=== PATIENT | male | born 1970 | race Caucasian/White ===

== ENCOUNTER 2017-11-22 13:35 | Emergency (ER) | payer OTHER, SELFPAY ==
[2017-11-22 13:40] VITALS: BP 130/83; PULSE 79; RESP 16; TEMP 36.7; O2SAT 98
--- NOTE | 2017-11-22 13:54 | ED.BACK ---
HPI - Back Pain/Injury <Shirley Camacho PA-C - Last Filed: 11/22/17 21:18> General Chief Complaint: Back Pain/Injury Stated Complaint: 'THREW MY BACK OUT SO SEVERE' Time Seen by Provider: 11/22/17 13:54 Source: patient Mode of arrival: ambulatory Limitations: no limitations History of Present Illness HPI Narrative: This 47-year-old male states he was pressure washing when he twisted and felt pain right away in his left low back. Pain is worse with pressure in certain areas or twisting. He denies any other injury. States he did hurt his back several months ago but symptoms had resolved. He denies any pain, weakness, or paresthesia in the extremities. He denies any bowel or bladder dysfunction. No fever other injury, or other new complaints today. Related Data Previous Rx's Medication Instructions Recorded ibuprofen 800 mg PO TID PRN #20 tab 09/22/17 lamotrigine 200 mg tablet 600 mg PO BID #540 tab 10/03/17 levetiracetam 500 mg tablet 1,000 mg PO BID #360 tab 10/03/17 quetiapine 50 mg tablet 100 mg PO HS #180 tab 10/03/17 diazepam [Valium] 5 mg PO Q8H PRN #7 tab 11/22/17 hydrocodone-acetaminophen [[place]] 1 tab PO Q4-6H PRN #6 tab 11/22/17 Allergies Allergy/AdvReac Type Severity Reaction Status Date / Time oxycodone [OXYCODONE] Allergy Mild Verified 11/22/17 13:40 Review of Systems <Shirley Camacho PA-C - Last Filed: 11/22/17 21:18> Review of Systems All systems reviewed & are unremarkable except as noted in HPI and below Exam <Shirley Camacho PA-C - Last Filed: 11/22/17 21:18> Narrative Exam Narrative: GENERAL APPEARANCE: Patient sitting comfortably, in no distress. PULMONARY: Lungs clear to auscultation bilaterally CV: Regular rhythm regular without murmur, normal S1 and S2, no S3 or S4 MUSCULOSKELETAL: No point tenderness over the lumbar spine. Moderate tenderness over the left mid to inferior lumbar musculature at the mid scapular line. He has reduced lateral bend and rotation, R>L, secondary to tendernesss. Normal trunk flexion and extension. Normal sit:stand and gait. Lower extremity strength 5/5 bilateral hip flexors, knee extensors, foot plantar flexion. Negative modified straight leg raise NEUROLOGIC: Bilateral patellar and Achilles DTRs 2+ Initial Vital Signs Initial Vital Signs: Vital Signs Temperature 98.1 F 11/22/17 13:40 Pulse Rate 79 11/22/17 13:40 Respiratory Rate 16 11/22/17 13:40 Blood Pressure 130/83 H 11/22/17 13:40 Pulse Oximetry 98 11/22/17 13:40 <Bubba Escamilla MD - Last Filed: 11/23/17 18:16> Initial Vital Signs Initial Vital Signs: Vital Signs Temperature 98.1 F 11/22/17 13:40 Pulse Rate 79 11/22/17 13:40 Respiratory Rate 16 11/22/17 13:40 Blood Pressure 130/83 H 11/22/17 13:40 Pulse Oximetry 98 11/22/17 13:40 Course <Shirley Camacho PA-C - Last Filed: 11/22/17 21:18> Vital Signs - 8 hr 11/22/17 13:40 11/22/17 14:31 Temperature 98.1 F Pulse Rate 79 72 Respiratory Rate 16 16 Blood Pressure 130/83 H Blood Pressure [Left Arm] 119/84 H Pulse Oximetry 98 98 <Bubba Escamilla MD - Last Filed: 11/23/17 18:16> Vital Signs - 8 hr 11/22/17 13:40 11/22/17 14:31 Temperature 98.1 F Pulse Rate 79 72 Respiratory Rate 16 16 Blood Pressure 130/83 H Blood Pressure [Left Arm] 119/84 H Pulse Oximetry 98 98 Discharge Plan Departure Patient Disposition: Home, Self-Care Clinical Impression: Acute myofascial strain of lumbar region Discharge Date/Time: 11/22/17 14:41 Interventions: ED Discharge Assessment Last Done: 11/22/17 14:40 Instructions: DI for Back Strain or Sprain Activity Restrictions/Additional Instructions: Continue ice today as helpful. I suggest getting some [id number] lidocaine 4% patches from the pharmacy and put them on the sore areas on your back today and as needed. You can take another dose of 800 mg ibuprofen this evening and continue that every 8 hr as needed. I have also prescribed a few hydrocodone/acetaminophen for pain and Valium (diazepam) to help with the tight muscles and spasms. You may need these for today until the acute pain starts to improve. Please return if you have new or acutely worsening symptoms, otherwise you should follow up with your PCP if this is not improving over the weekend as you may need further testing or treatment. Remember not to drive with the pain medicine or muscle relaxant as they will likely make you sleepy. Prescriptions: New hydrocodone-acetaminophen [[place]] 5-325 mg tablet 1 tab PO Q4-6H PRN (Reason: back pain) Qty: 6 RF: 0 diazepam [Valium] 5 mg tablet 5 mg PO Q8H PRN (Reason: back pain/spasm) Qty: 7 RF: 0 No Action lamotrigine [Lamictal] 200 mg tablet 600 mg PO BID Qty: 540 RF: 3 levetiracetam [Keppra] 500 mg tablet 1,000 mg PO BID Qty: 360 RF: 3 quetiapine 50 mg tablet 100 mg PO HS Qty: 180 RF: 3 ibuprofen 800 mg tablet 800 mg PO TID PRN (Reason: pain) Qty: 20 RF: 0 Referrals: Yosvany Kraft MD [Primary Care Provider] - <Bubba Escamilla MD - Last Filed: 11/23/17 18:16> [facility] ED Attending Cosfarshadature Attestation: I was fairly well in the emergency department to answer questions and assist if needed. I agree with the document content and management plan.
[2017-11-22 14:31] VITALS: BP 119/84; PULSE 72; RESP 16; O2SAT 98
== END 2017-11-22 14:41 | disposition home or self-care (01) ==
PROVIDERS: Emergency Provider Internal Medicine; Family Provider Internal Medicine; PCP Internal Medicine
DX: S39.012A Strain of muscle, fascia and tendon of lower back, initial encounter (principal)
CPT/HCPCS: 99282

== ENCOUNTER 2017-12-07 12:14 | Emergency (ER) | payer OTHER, SELFPAY ==
[2017-12-07 12:20] VITALS: BP 143/90; PULSE 72; RESP 20; TEMP 36.8; O2SAT 100
--- NOTE | 2017-12-07 12:35 | ED.LOWEXIN ---
HPI - Extremity Injury (Lower) <ROMEL Hendrickson - Last Filed: 12/07/17 22:39> General Chief Complaint: Extremity Injury, Lower Stated Complaint: LACERATION TO RIGHT SHINE Time Seen by Provider: 12/07/17 12:35 History of Present Illness HPI Narrative: 47-year-old male here for complaint of laceration to his right cervantes. He states that he was mowing the lawn when he accidentally by brushed up against the side of the riding lawnmower and sharp edge of metal caught him in the right anterior cervantes. Patient was able to ambulate into the emergency room. He denies any other injuries or concerns. He states he does not remember his last tetanus shot. Incident happened just prior to arrival. Related Data Previous Rx's Medication Instructions Recorded ibuprofen 800 mg PO TID PRN #20 tab 09/22/17 lamotrigine 200 mg tablet 600 mg PO BID #540 tab 10/03/17 levetiracetam 500 mg tablet 1,000 mg PO BID #360 tab 10/03/17 quetiapine 50 mg tablet 100 mg PO HS #180 tab 10/03/17 diazepam [Valium] 5 mg PO Q8H PRN #7 tab 11/22/17 hydrocodone-acetaminophen [[place]] 1 tab PO Q4-6H PRN #6 tab 11/22/17 Allergies Allergy/AdvReac Type Severity Reaction Status Date / Time oxycodone [OXYCODONE] Allergy Mild Verified 11/22/17 13:40 Review of Systems <ROMEL Hendrickson - Last Filed: 12/07/17 22:39> Constitutional Denies chills, Denies fever(s), Denies lethargy and Denies weakness Eyes Denies change in vision, Denies eye discharge, Denies irritation and Denies loss of vision ENT Ears, Nose, Mouth, and Throat: Denies change in voice, Denies neck pain and Denies sore throat Cardiovascular Denies chest pain, Denies irregular heart rhythm, Denies lightheadedness, Denies palpitations, Denies dyspnea, Denies dyspnea on exertion and Denies orthopnea Respiratory Denies cough, Denies dyspnea, Denies dyspnea on exertion and Denies wheezing Gastrointestinal Gastrointestinal: Denies abdominal pain, Denies change in bowel habits, Denies diarrhea, Denies nausea and Denies vomiting Genitourinary Denies hematuria, Denies flank pain, Denies urinary incontinence and Denies urinary urgency Musculoskeletal Denies neck pain Comments: Laceration right cervantes Integumentary/Breasts Denies pruritus, Denies erythema, Denies rash and Denies wounds Neurologic Denies confusion, Denies loss of vision and Denies weakness Psychiatric Denies anxiety, Denies confusion, Denies depression, Denies homicidal ideation and Denies suicidal ideation Endocrine Denies palpitations Hematologic/Lymphatic Denies easy bruising Allergic/Immunologic Denies wheezing Exam <ROMEL Hendrickson - Last Filed: 12/07/17 22:39> Initial Vital Signs Initial Vital Signs: Vital Signs Temperature 98.2 F 12/07/17 12:20 Pulse Rate 72 12/07/17 12:20 Respiratory Rate 20 12/07/17 12:20 Blood Pressure 143/90 H 12/07/17 12:20 Pulse Oximetry 100 12/07/17 12:20 Const General: cooperative and well developed Nutritional Appearance: well nourished Orientation: alert, awake, oriented x3 and not confused HENFL Mouth: moist mucous membranes Eyes Conjunctivae: conjunctivae normal Sclera: sclerae normal Pupils: PERRL EOM: EOM intact bilaterally Resp Effort & Inspection: normal respiratory effort, able to speak in complete sentences, no respiratory distress and no use of accessory muscles Auscultation: clear to auscultation bilaterally, no rales, no rhonchi and no wheezes Cardio Rate: regular rate Rhythm: regular rhythm Heart Sounds: no click, no gallops, no murmurs and no rubs Pulses: normal peripheral pulses Skin General: no rashes or lesions noted, No jaundice and No petechiae Neuro General: alert, oriented x3, gait normal and no focal motor deficits Speech: speech normal Extrem Other: 3 cm laceration to and anterior right cervantes. Distal sensation is intact. Distal pulses are intact. Full range of motion. <Yeimy Holguin DO - Last Filed: 12/11/17 05:55> Initial Vital Signs Initial Vital Signs: Vital Signs Temperature 98.2 F 12/07/17 12:20 Pulse Rate 72 12/07/17 12:20 Respiratory Rate 20 12/07/17 12:20 Blood Pressure 143/90 H 12/07/17 12:20 Pulse Oximetry 100 12/07/17 12:20 Procedures <ROMEL Hendrickson - Last Filed: 12/07/17 22:39> Laceration Repair Laceration 1: Site: lower extremity (3 cm laceration to anterior right cervantes) Side (If applicable): right Size (cm): 3 Description: linear Depth: simple, single layer Local Anesthetic: lidocaine 1% Amount of anesthesia used (mL): 4 Pre-repair: wound explored and irrigated extensively Size (cm): 4-0 Number of sutures: 7 Technique: simple, interrupted Course <ROMEL Hendrickson - Last Filed: 12/07/17 22:39> Orders Ordered: Discontinued Medications Diphtheria/Tetanus/Acell Pertussis (Adacel) 0.5 ml IM .ONCE ONE Stop: 12/07/17 13:08 Last Admin: 12/07/17 13:28 Dose: 0.5 ml Vital Signs - 8 hr 12/07/17 12:20 Temperature 98.2 F Pulse Rate 72 Respiratory Rate 20 Blood Pressure 143/90 H Pulse Oximetry 100 <Yeimy Holguin DO - Last Filed: 12/11/17 05:55> Orders Ordered: Discontinued Medications Diphtheria/Tetanus/Acell Pertussis (Adacel) 0.5 ml IM .ONCE ONE Stop: 12/07/17 13:08 Last Admin: 12/07/17 13:28 Dose: 0.5 ml Vital Signs - 8 hr 12/07/17 12:20 Temperature 98.2 F Pulse Rate 72 Respiratory Rate 20 Blood Pressure 143/90 H Pulse Oximetry 100 MDM - Extremity Injury (Lower) <ROMEL Hendrickson - Last Filed: 12/07/17 22:39> MDM Narrative Medical decision making narrative: Laceration was closed with 7 4-0 nylon simple interrupted sutures with no complications. Tetanus was updated in the emergency room. Wound dressed with bacitracin and dressing. Sutures to be removed in 10 days. [id number] Tylenol Motrin as needed for any discomfort. Follow up with primary care provider. Keep wound area clean and dry for 24 hr. After 24 hr may shower briefly dry wound afterwards stress wound with bacitracin and dressing. Dress wound daily with bacitracin and a dressing. For any worsening symptoms or signs of infection return to the emergency room. Discharge Plan Departure Patient Disposition: Home, Self-Care Clinical Impression: Laceration of lower leg, right Discharge Date/Time: 12/07/17 13:52 Interventions: ED Discharge Assessment Last Done: 12/07/17 13:52 Instructions: DI for Laceration Repair Activity Restrictions/Additional Instructions: Laceration to right cervantes was closed with 7 sutures. Tetanus was updated in the emergency room. Wound dressed with bacitracin and dressing. Sutures to be removed in 10 days. [id number] Tylenol Motrin as needed for any discomfort. Follow up with primary care provider. Keep wound area clean and dry for 24 hr. After 24 hr may shower briefly dry wound afterwards stress wound with bacitracin and dressing. Dress wound daily with bacitracin and a dressing. For any worsening symptoms or signs of infection return to the emergency room. Prescriptions: No Action lamotrigine [Lamictal] 200 mg tablet 600 mg PO BID Qty: 540 RF: 3 levetiracetam [Keppra] 500 mg tablet 1,000 mg PO BID Qty: 360 RF: 3 quetiapine 50 mg tablet 100 mg PO HS Qty: 180 RF: 3 ibuprofen 800 mg tablet 800 mg PO TID PRN (Reason: pain) Qty: 20 RF: 0 hydrocodone-acetaminophen [[place]] 5-325 mg tablet 1 tab PO Q4-6H PRN (Reason: back pain) Qty: 6 RF: 0 diazepam [Valium] 5 mg tablet 5 mg PO Q8H PRN (Reason: back pain/spasm) Qty: 7 RF: 0 Referrals: Yosvany Kraft MD [Primary Care Provider] - <Yeimy Holguin DO - Last Filed: 12/11/17 05:55> [facility] [place] Attestation: I was immediately available in the department for consultation. Documentation has been reviewed. I agree with assessment and plan.
[2017-12-07 13:27] VITALS: BP 123/84; PULSE 67; RESP 18; O2SAT 100
[2017-12-07] MEDS: TET,DIPH,PERTUSS(ACELL),VAC/PF 0.5 ML SYRINGE IM (13:28)
== END 2017-12-07 13:52 | disposition home or self-care (01) ==
PROVIDERS: Emergency Provider Nurse Practitioner Family; Family Provider Internal Medicine; PCP Internal Medicine
DX: S81.811A Laceration without foreign body, right lower leg, initial encounter (principal); W26.8XXA Contact with other sharp object(s), not elsewhere classified, initial encounter
CPT/HCPCS: 12002; 90471; 99282; 99283; 90715

== ENCOUNTER 2018-02-15 02:17 | Emergency (ER) | payer OTHER, SELFPAY ==
--- NOTE | 2018-02-15 02:21 | ED_ITS ---
HPI - Extremity Injury (Upper) General Chief Complaint: Extremity Injury, Upper Stated Complaint: left hand injury, swollen pain Time Seen by Provider: 02/15/18 02:20 Source: patient Mode of arrival: ambulatory Limitations: no limitations History of Present Illness HPI narrative: 47-year-old male with history of smoking and seizure disorder presents with a chief complaint of left hand pain and swelling after falling a few feet out of a tree earlier today. He fell from about waist high and to his left hand and now has pain and swelling, much worse with motion. He denies any wrist, shoulder or elbow pain. He did not hurt his head, neck or back. He denies any numbness, tingling or weakness. His pain is worse with motion and improves with rest MD complaint: injury to: left Onset (ago): hour(s) Other Extremity Injury: Left: hand Handedness: right Place: outdoors Severity: moderate Relieving factors: immobilization Exacerbating factors: movement of extremity Context: fall Associated symptoms: denies other symptoms Treatments prior to arrival: NSAIDS Related Data Previous Rx's Medication Instructions Recorded ibuprofen 800 mg PO TID PRN #20 tab 09/22/17 lamotrigine 200 mg tablet 600 mg PO BID #540 tab 10/03/17 levetiracetam 500 mg tablet 1,000 mg PO BID #360 tab 10/03/17 quetiapine 50 mg tablet 100 mg PO HS #180 tab 10/03/17 hydrocodone-acetaminophen 1 tab PO Q4-6H PRN #14 tab 02/15/18 Allergies Allergy/AdvReac Type Severity Reaction Status Date / Time oxycodone [OXYCODONE] Allergy Mild Verified 01/09/18 13:32 Review of Systems Review of Systems All systems reviewed & are unremarkable except as noted in HPI and below Constitutional Denies chills, Denies fever(s), Denies lethargy and Denies weakness Eyes Denies change in vision, Denies eye discharge, Denies irritation and Denies loss of vision ENT Ears, Nose, Mouth, and Throat: Denies change in voice, Denies neck pain and Denies sore throat Cardiovascular Denies chest pain, Denies irregular heart rhythm, Denies lightheadedness, Denies palpitations, Denies dyspnea, Denies dyspnea on exertion and Denies orthopnea Respiratory Denies cough, Denies dyspnea, Denies dyspnea on exertion and Denies wheezing Gastrointestinal Gastrointestinal: Denies abdominal pain, Denies change in bowel habits, Denies diarrhea, Denies nausea and Denies vomiting Genitourinary Denies hematuria, Denies flank pain, Denies urinary incontinence and Denies urinary urgency Musculoskeletal Reports joint swelling, Reports limited range of motion and Denies neck pain Integumentary/Breasts Denies pruritus, Denies erythema, Denies rash and Denies wounds Neurologic Denies confusion, Denies loss of vision and Denies weakness Psychiatric Denies anxiety, Denies confusion, Denies depression, Denies homicidal ideation and Denies suicidal ideation Endocrine Denies palpitations Hematologic/Lymphatic Denies easy bruising Allergic/Immunologic Denies wheezing [facility] Social History marital status: unmarried,single number of children: 0 household members: family lives independently: Yes caregiver/support person: No housing: house pets and animals: Yes education level: high school 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 Extraoccular muscles are intact bilaterally. There is no subconjunctival hemorrhage or exudate. CHEST: Lungs are clear to auscultation bilaterally and free of wheezes, rales, or rhonchi. Heart rate is regular rhythm, there are no murmurs, clicks, rubs, or gallops. There is no chest wall tenderness. ABD: Abdomen is soft and nontender. There is no guarding or rebound. Bowel sounds are normal in all 4 quadrants. There is no mass or organomegaly. EXT: Decreased range of motion secondary to pain of left hand with notable swelling on the dorsal lateral aspect, overlying 5th metacarpal. This is closed , isolated and neurovascularly intact. Cap refills less than 2 sec SKIN: Warm, pink, and dry. No erythema or rash Initial Vital Signs Initial Vital Signs: Vital Signs Temperature 97.9 F 02/15/18 02:27 Pulse Rate 79 02/15/18 02:27 Respiratory Rate 18 02/15/18 02:27 Blood Pressure 149/97 H 02/15/18 02:27 Pulse Oximetry 97 02/15/18 02:27 Procedures Orthopedic Splinting/Casting Injury #1: Side: left Upper Extremity Injury Location: hand Upper Extremity Immobilizer: ulnar gutter Course Orders Ordered: ED Orders 02/15/18 02:23 XR hand LT min 3V Stat Discontinued Medications Hydrocodone Bitart/Acetaminophen (Vicodin Prepack) 1 bottle MISC SEEINSTR ONE Stop: 02/15/18 02:36 Vital Signs - 8 hr 02/15/18 02:27 Temperature 97.9 F Pulse Rate 79 Respiratory Rate 18 Blood Pressure 149/97 H Pulse Oximetry 97 Discharge Plan Departure Patient Disposition: Home Clinical Impression: Fracture of fifth metacarpal bone Instructions: DI for a Hand Fracture Activity Restrictions/Additional Instructions: *You have been diagnosed with [acute mildly displaced left 5th metacarpal fracture ] *What to do: *Take medications as directed: Wear splint until follow-up *Follow up with orthopedics, call for an appointment. Let them know you were seen in the Emergency Department and that we ask that you be seen in follow up *Return to ER if you should have any new, worsening or concerning symptoms Prescriptions: New hydrocodone-acetaminophen 5-325 mg tablet 1 tab PO Q4-6H PRN (Reason: pain) Qty: 14 RF: 0 No Action lamotrigine [Lamictal] 200 mg tablet 600 mg PO BID Qty: 540 RF: 3 levetiracetam [Keppra] 500 mg tablet 1,000 mg PO BID Qty: 360 RF: 3 quetiapine 50 mg tablet 100 mg PO HS Qty: 180 RF: 3 ibuprofen 800 mg tablet 800 mg PO TID PRN (Reason: pain) Qty: 20 RF: 0 Referrals: Yosvany Kraft MD [Primary Care Provider] - Mark Zimmerman MD [Physician] -
--- NOTE | 2018-02-15 02:23 | DI.RAD.S_ITS ---
PROCEDURE: XR HAND LT MIN 3V INDICATIONS: pain swelling after injury (fall from tree) TECHNIQUE: 3 views of the hand(s) acquired. COMPARISON: None. FINDINGS: Bones: There is a fifth metacarpal neck fracture/deformity of uncertain chronicity. Small corticated ossicle adjacent to the surgical metacarpal head is likely sequelae of old injury. Carpal bones are normally aligned. No suspicious bony lesions. Soft tissues: No suspicious soft tissue calcifications. IMPRESSION: 1. Fifth metacarpal neck fracture of uncertain chronicity. 2. Small corticated ossicle adjacent to the third metacarpal head, likely sequelae of old injury. Dictated by: Jhon Alcantar M.D. on 02/15/2018 at 8:30 Approved by: Jhon Alcantar M.D. on 02/15/2018 at 8:33
[2018-02-15 02:27] VITALS: BP 149/97; PULSE 79; RESP 18; TEMP 36.6; O2SAT 97
[2018-02-15] MEDS: HYDROCODONE/ACET 5/325 PREPACK 1 BOTTLE MISC (02:42)
== END 2018-02-15 03:09 | disposition home or self-care (01) ==
PROVIDERS: Emergency Provider Emergency Medicine; Family Provider Internal Medicine; PCP Internal Medicine
DX: S62.307A Unspecified fracture of fifth metacarpal bone, left hand, initial encounter for closed fracture (principal); W14.XXXA Fall from tree, initial encounter
CPT/HCPCS: 29125; 73130; 99282; 99283

== ENCOUNTER 2018-05-22 02:54 | Emergency (ER) | payer OTHER, SELFPAY ==
--- NOTE | 2018-05-22 03:01 | DI.RAD.S_ITS ---
PROCEDURE: XR WRIST RT MIN 3V INDICATIONS: fall TECHNIQUE: 4 views of the wrist were acquired. COMPARISON: None. FINDINGS: Bones: Comminuted intra-articular distal radial metaphyseal fracture. There is also fracture of the ulnar styloid. Soft tissues: No suspicious soft tissue calcifications. IMPRESSION: Distal radial and ulnar fractures as above Dictated by: Daniele Kuamr M.D. on 05/22/2018 at 9:09 Approved by: Daniele Kumar M.D. on 05/22/2018 at 9:10
--- NOTE | 2018-05-22 03:02 | DI.RAD.S_ITS ---
PROCEDURE: XR FOREARM RT 2V INDICATIONS: fall TECHNIQUE: 2 views of the forearm were acquired. COMPARISON: None. FINDINGS: Bones: Severely comminuted distal radial metaphyseal fracture with intra-articular extension and gross articular surface incongruity. Mildly displaced ulnar styloid fracture also noted. First CMC and triscaphe joint degeneration Soft tissues: No suspicious soft tissue calcifications or masses. IMPRESSION: Severely comminuted distal radial metaphyseal fracture with associated articular surface incongruity Mildly displaced ulnar styloid fracture. Dictated by: Daniele Kumar M.D. on 05/22/2018 at 10:16 Approved by: Daniele Kumar M.D. on 05/22/2018 at 10:17
[2018-05-22 03:03] VITALS: BP 126/76; PULSE 74; RESP 16; TEMP 36.6; O2SAT 98
[2018-05-22 03:07] VITALS: PULSE 74
[2018-05-22] MEDS: HYDROCODONE/ACET 5/325 TABLET 1 TAB PO (03:33)
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
--- NOTE | 2018-05-22 04:04 | PC.NURSE ---
Provider approved splint.
[2018-05-22 04:05] VITALS: BP 133/80; PULSE 85; RESP 16; O2SAT 96
== END 2018-05-22 04:07 | disposition home or self-care (01) ==
PROVIDERS: Emergency Provider Emergency Medicine; Family Provider Internal Medicine; PCP Internal Medicine
DX: M25.531 Pain in right wrist (principal); S62.101A Fracture of unspecified carpal bone, right wrist, initial encounter for closed fracture; Y09 Assault by unspecified means
CPT/HCPCS: 29125; 73090; 73110; 99282; 99283

== ENCOUNTER → 2018-05-24 14:49 | Outpatient (CLI) | payer OTHER, SELFPAY ==
--- NOTE | 2018-05-24 | DI.CT.S_ITS ---
PROCEDURE: CT UE RT WO CON INDICATIONS: CLOSED FRACTURE OF RIGHT WRIST TECHNIQUE: Noncontrast 1 mm axial sections acquired through the carpal bones, with coronal and sagittal reformats. COMPARISON: [facility], CR, XR FOREARM RT 2V, 05/22/2018, 3:28. [facility], CR, XR WRIST RT MIN 3V, 05/22/2018, 3:28. FINDINGS: Image quality: Diagnostic. Bones: There is a moderately comminuted intra-articular fracture involving the distal radius with associated impaction. The fracture is predominantly represents a transverse fracture through the distal metaphysis with a vertical extension into the joint space. While there is no significant articular surface step off, there is widening of the joint space along the dorsal aspect of the radial articular surface, to approximately 5 mm. There also is an ulnar styloid process avulsion fracture. Small bone fragments are seen within the radiocarpal joint space. No additional fractures are appreciated. Specifically, the alignment of the carpal bones is within normal limits. No carpal fractures are identified. There mild degenerative changes involving the basal joint of the thumb. No suspicious osseous lesions or dislocations are identified. Soft tissues: Soft tissue swelling about the fracture is identified, particularly along the dorsal aspect of the hand and wrist. No unexpected radiopaque foreign bodies are appreciated. Imaged muscles demonstrate no significant atrophy. Please note that evaluation of the ligamentous, cartilaginous, and tendinous structures of the wrist are not adequately evaluated on CT. IMPRESSION: 1. Highly comminuted intra-articular fracture of the distal radial metaphysis with associated impaction and mild articular surface offset as described. 2. Ulnar styloid process fracture. Dictated by: Johnny Mott M.D. on 05/24/2018 at 15:31 Approved by: Johnny Mott M.D. on 05/24/2018 at 15:38
== END ==
PROVIDERS: PCP Internal Medicine; Visit Provider Orthopaedic Surgery
DX: S52.571A Other intraarticular fracture of lower end of right radius, initial encounter for closed fracture (principal); S52.611A Displaced fracture of right ulna styloid process, initial encounter for closed fracture
CPT/HCPCS: 73200

== ENCOUNTER → 2018-10-29 12:57 | Outpatient (CLI) | payer OTHER, SELFPAY | PROVIDERS: PCP Internal Medicine; Visit Provider Specialist | DX: G40.109 Localization-related (focal) (partial) symptomatic epilepsy and epileptic syndromes with simple partial seizures, not intractable, without status epilepticus (principal) | CPT/HCPCS: 36415; 80175 ==

== ENCOUNTER → 2020-04-03 12:09 | Outpatient (CLI) | payer OTHER, SELFPAY ==
[2020-04-06 16:10] LABS: Lamotrigine Lamictal 11.3 ug/mL (2.0-20.0)
== END ==
PROVIDERS: PCP Internal Medicine; Referring Provider Specialist; Visit Provider Specialist
DX: G40.109 Localization-related (focal) (partial) symptomatic epilepsy and epileptic syndromes with simple partial seizures, not intractable, without status epilepticus (principal)
CPT/HCPCS: 36415; 80175

== ENCOUNTER → 2023-03-02 12:43 | Outpatient (CLI) | payer OTHER, SELFPAY ==
--- NOTE | 2023-03-02 12:46 | DI.RAD.S_ITS ---
PROCEDURE: XR ANKLE LT MIN 3V INDICATIONS: ankle sprain, swelling TECHNIQUE: 3 views of the ankle were acquired. COMPARISON: None. FINDINGS: Bones: Comminuted and mildly displaced obliquely oriented fracture of the distal fibula. Ankle mortise is normally aligned. No suspicious bony lesions. Soft tissues: No tibiotalar joint effusion. Achilles tendon appears normal. Soft tissue swelling about the ankle. IMPRESSION: Comminuted and mildly displaced fracture of the distal fibula. Dictated by: Adonay Monge M.D. on 03/02/2023 at 13:10 Approved by: Adonay Monge M.D. on 03/02/2023 at 13:11
== END ==
PROVIDERS: PCP Family Medicine; Referring Provider Family Medicine; Visit Provider Family Medicine
DX: S82.452A Displaced comminuted fracture of shaft of left fibula, initial encounter for closed fracture (principal)
CPT/HCPCS: 73610

== ENCOUNTER 2023-06-01 15:59 | Emergency (ER) | payer OTHER, SELFPAY ==
[2023-06-01 16:03] VITALS: BP 168/102; PULSE 71; RESP 16; TEMP 36.3; O2SAT 98; BMI 23.0
== END 2023-06-01 18:27 | disposition left against medical advice (07) ==
PROVIDERS: Emergency Provider Emergency Medicine; PCP Family Medicine
CPT/HCPCS: 99281

== ENCOUNTER 2023-06-25 15:23 | Inpatient (IN) | payer OTHER, SELFPAY ==
[2023-06-25] VITALS (108 sets, daily range): BP systolic 81–148; BP diastolic 52–96; PULSE 63–88; RESP 1–57; TEMP 34.4–37.9; O2SAT 97–100; BMI 30.1; BMI 27.3
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
--- NOTE | 2023-06-25 15:31 | DI.RAD.S_ITS ---
PROCEDURE: XR FOOT RT MIN 3V INDICATIONS: Bruising to right great toe TECHNIQUE: 3 views of the foot were acquired. COMPARISON: None. FINDINGS: Bones: In this patient with this given history, scrutiny is given to the great toe. No focal bony abnormality is seen. No fractures or dislocations. No suspicious bony lesions. Soft tissues: No tibiotalar joint effusion. Achilles tendon appears normal. IMPRESSION: No acute bony abnormality is seen, including involving the great toe. Dictated by: Wayne Moreno M.D. on 06/25/2023 at 16:30 Approved by: Wayne Moreno M.D. on 06/25/2023 at 16:31
[2023-06-25] MEDS: SODIUM CHLORIDE 0.9% 1,000 ML 125 ML IV (15:32)
[2023-06-25 15:39] LABS: Add Manual Diff / Slide Review NO; Basophils Absolute Auto 100 /uL (0-100); Basophils Percent Auto 0.3 % (0-2); Eosinophils Absolute Auto 0 /uL (0-450); Eosinophils Percent Auto 0.2 % (2-4); Hematocrit 39.9 % (41-53); Hemoglobin 13.2 g/dL (13.5-17.5); Lymphocytes Absolute Auto 1100 /uL (1100-4500); Mean Corpuscular HGB Conc 33.1 % (30-36); Mean Corpuscular Hemoglobin 28.3 PG (26-34); Mean Corpuscular Volume 85.3 fL (80-100); Monocytes Absolute Auto 1800 /uL (0-900); Monocytes Percent Auto 10.1 % (3-14); Neutrophils Absolute Auto 14900 /uL (1500-7000); Neutrophils Percent Auto 83.4 % (50-75); Platelet Count 232 X10^3/uL (150-400); Red Blood Cell Count 4.68 X10^6/uL (4.5-5.9); Red Cell Distribution Width 14.3 % (11.6-14.8); White Blood Cell Count 17.8 X10^3/uL (4.5-11.0)
--- NOTE | 2023-06-25 15:39 | PC.NURSE ---
temp. sensing styles placed. pt is on ventilator. no response when styles inserted without incident.
[2023-06-25] MEDS: propofoL 1,000 MG/100 ML VIAL 2.403 MG IV ×2 (15:45→19:37)
[2023-06-25 15:47] LABS: Lactate (Lactic Acid) 1.5 mmol/L (0.7-2.1)
[2023-06-25 15:49] LABS: Acetaminophen < 10 ug/mL (10-30); Alanine Aminotransferase 26 IU/L (<50); Albumin Globulin Ratio 1.3 (1.0-2.8); Alkaline Phosphatase 65 U/L (38-126); Aspartate Aminotransferase 34 IU/L (17-59); BUN Creatinine Ratio 23.5 (6-22); Bilirubin Total 0.8 mg/dL (0.2-1.3); Blood Urea Nitrogen 16 mg/dL (9-20); Calcium 9.1 mg/dL (8.4-10.2); Carbon Dioxide 27 mmol/L (22-32); Chloride 103 mmol/L (98-107); Estimated Glomerular Filt Rate > 60 mL/min (>60); Ethanol (ETOH) < 10 mg/dL; Globulin 3.1 g/dL (1.7-4.1); Glucose 125 mg/dL (70-100); HEMOLYSIS < 15 (0-50); Lipase 43 U/L (23-300); Magnesium 2.6 mg/dL (1.6-2.3); Potassium 3.4 mmol/L (3.4-5.1); Sodium 138 mmol/L (137-145); Total Protein 7.1 g/dL (6.3-8.2)
[2023-06-25 15:52] LABS: Appearance Urine UA CLEAR; Bilirubin Urine UA NEGATIVE (NEGATIVE); Color Urine UA YELLOW; Glucose Urine UA NEGATIVE (Negative); Ketones Urine UA TRACE (NEGATIVE); Leukocyte Esterase Urine UA NEGATIVE (NEGATIVE); Nitrite Urine UA NEGATIVE (Negative); Occult Blood Urine UA NEGATIVE (Negative); Protein Urine UA 1+ (Negative); Specific Gravity Urine UA >=1.030 (1.000-1.035); Urobilinogen Urine UA 0.2 E.U./dL (0.2); pH Urine UA 5.5 (4.5-8.0)
[2023-06-25 15:56] LABS: Ur Creatinine Normal (Normal); Ur Specific Gravity Normal (Normal); Urine pH Normal (Normal)
[2023-06-25 15:57] LABS: UR Morphine/Opiate cutoff 300 Negative (Negative); Urine Amphetamines Positive (Negative); Urine Barbiturates Negative (Negative); Urine Benzodiazepines Negative (Negative); Urine Cocaine Positive (Negative); Urine MDMA Negative (Negative); Urine Methadone Negative (Negative); Urine Methamphetamines Positive (Negative); Urine Oxycodone Negative (Negative); Urine Phencyclidine Negative (Negative); Urine Tetrahydrocannabinol Negative (Negative); Urine Tricyclic Antidepressant Positive (Negative)
[2023-06-25 16:05] LABS: Lithium 0.4 mmol/L (0.6-1.2)
[2023-06-25 16:06] LABS: Procalcitonin 0.06 ng/mL (<0.5); Prolactin 14.8 ng/mL (3.7-17.9)
[2023-06-25 16:09] LABS: Bacteria Urine None Seen; Culture Indicated Urine Cult Not Indicated; Hyaline Casts Urine 0-1/LPF; Mucus Urine 1+ (Negative); RBC Urine None Seen (0-5/HPF); Squamous Epithelial Cell Urine 0-1 /HPF (0-5/HPF); Urine Volume 10mL (spun); WBC Urine 0-1/HPF (0-5/HPF)
[2023-06-25 16:11] LABS: Ammonia (NH3) 12 umol/L (9-30)
[2023-06-25 16:11] LABS: Creatine Kinase 430 U/L (55-170); Salicylate < 1.0 mg/dL (<20)
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
[2023-06-25 16:23] LABS: Troponin I < 0.012 ng/mL (0.01-0.034)
--- NOTE | 2023-06-25 16:37 | PC.NURSE ---
Pt arrives unresponsive and intubated after apparent suicide attempt with OD of quetiapine. Unknown amount. Pt has small, non bleeding lacerations to nose. Pt has bruising to his right toe. RT remains at bedside and BETTE Dunn.
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
--- NOTE | 2023-06-25 17:04 | PC.NURSE ---
Call to poison control. Spoke with pharmacist Dominga. Her recommendations are to recheck lithium level in 4 hours from initial draw. Quetiapine can cause QTC & QRS prolongation. If QTC is above 500 can give a bolus of magnesium. If QRS prolongation is above 110 give bolus of sodium bicarb. If agitation and/or tremors present can treat with benzos. Provider notified.
[2023-06-25 17:06] LABS: COVID19 -Nasal RAPID Negative (Negative)
[2023-06-25 17:08] LABS: PO2 ABG 92 mmHg (80-100); pH ABG 7.37 (7.35-7.45)
[2023-06-25 17:09] LABS: Blood Gas Collection Site Left Brachial; Fractionated Inspired Oxygen 40; HCO3 ABG 25 mmol/L (23-27); Oxygen Saturation ABG 97 % (95-100); TCO2 ABG 26 mmol/L (23-27)
[2023-06-25 17:40] LABS: Adenovirus Not Detected (Not Detect); B. parapertussis Not Detected (Not Detecte); Bordetella pertussis Not Detected (Not Detect); Chlamydophila pneumoniae Not Detected (Not Detect); Coronavirus 229E Not Detected (Not Detect); Coronavirus HKU1 Not Detected (Not Detect); Coronavirus NL 63 Not Detected (Not Detect); Coronavirus OC43 Not Detected (Not Detect); Human Metapneumovirus Not Detected (Not Detect); Human Rhinovirus/Enterovirus Not Detected (Not Detect); Influenza A Not Detected (Not Detect); Influenza B Not Detected (Not Detect); Mycoplasma pneumoniae Not Detected (Not Detect); Parainfluenza Virus 1 Not Detected (Not Detect); Parainfluenza Virus 2 Not Detected (Not Detect); Parainfluenza Virus 3 Not Detected (Not Detect); Parainfluenza Virus 4 Not Detected (Not Detect); Respiratory Syncytial Virus Not Detected (Not Detect); SARS- CoV-2 Not Detected (Not Detecte)
[2023-06-25] MEDS: SODIUM CHLORIDE 0.9% 500 ML 1000 ML IV (18:55)
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
--- NOTE | 2023-06-25 20:49 | PM.CN.EICU ---
History of Present Illness Consult details IF CAMERA ACTIVATED, patient seen via real-time interactive audiovisual communication: Camera activated Chief complaint: unresponsive Consent obtained for tele-cyber security architect care: Yes Patient Location: ICU Provider location (State): [place] Other participants/roles: RN Narrative: 52yo man with bipolar disorder, seizure disorder secondary to hx of TBI, substance abuse who presented intubated in the field by EMS after presumed overdos. medicaiton taken is unclear, as he was found with mutliple pills around him. this may be seroquel as bottle was empty, but it is hard to say and tox screen is positive for multiple medication inclujding TCA ( could justb e mritazapine) currently he is unrepsonsive and intubated. No obvious signes of seizures and no vertial nystagmus. he i s synchrinous ith the vent, and c-collar is in place as cervical spine CT not performed yet. no obvious neurologic deficit. no specific recs form poosion control. 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.) current occupational exposures/hazards: No rafaela/taoism: Shinto leisure activities: other (Hanging out with Friends.) Smoking Status: Current every day smoker Tobacco: How many years used: 30 Smokeless tobacco user: other (Cigarettes) quit status: considering quitting second hand exposure: Yes alcohol intake: current substance use type: former substance user Current Medications Current Medications Medications: Home Medications lamotrigine 200 mg tablet (Lamictal) 400 mg (2 x 200 mg) PO BID #120 tabs 10/07/19 [Rx Confirmed 03/02/23] levetiracetam 1,000 mg tablet (Keppra) 1,000 mg PO BID 10/07/19 [History Confirmed 03/02/23] mirtazapine 15 mg tablet 15 mg PO BEDTIME #30 tabs 10/01/20 [Rx Confirmed 03/02/23] quetiapine 50 mg tablet 150 mg (3 x 50 mg) PO HS #270 tabs 10/01/20 [Rx Confirmed 03/02/23] Visit Medications (administered) Generic Name Dose Route Start Last Admin Trade Name Freq PRN Reason Stop Dose Admin Propofol 1,000 mg in 100 mls @ 2.403 mls/hr 06/25/23 19:15 06/25/23 20:03 Propofol IV 30 mcg/kg/min TITRATE LARISA 14.419 mls/hr Titration Protocol 5 MCG/KG/MIN Exam Vital Signs (past 8 hours): - 06/25/23 15:22 06/25/23 15:42 06/25/23 15:45 Temperature 94.6 F L 94.6 F L Pulse Rate 85 83 86 Respiratory Rate 20 48 H 45 H Blood Pressure 129/85 Pulse Oximetry 100 97 98 Oxygen Delivery Method Mechanical Ventilation 06/25/23 15:45 06/25/23 15:50 06/25/23 15:50 Temperature 94.6 F L Pulse Rate 88 Respiratory Rate 28 H Blood Pressure 127/90 134/92 H Pulse Oximetry 100 Oxygen Delivery Method 06/25/23 15:54 06/25/23 15:54 06/25/23 15:55 Temperature 94.5 F L 94.5 F L Pulse Rate 86 86 Respiratory Rate 32 H 35 H Blood Pressure 147/88 H Pulse Oximetry 100 100 Oxygen Delivery Method Mechanical Ventilation 06/25/23 16:00 06/25/23 16:01 06/25/23 16:01 Temperature 94.5 F L 94.5 F L Pulse Rate 88 88 Respiratory Rate 35 H 43 H Blood Pressure 148/93 H Pulse Oximetry 100 100 Oxygen Delivery Method Mechanical Ventilation 06/25/23 16:05 06/25/23 16:05 06/25/23 16:09 Temperature 94.3 F L 94.1 F L Pulse Rate 88 88 Respiratory Rate 35 H 39 H Blood Pressure 138/88 Pulse Oximetry 100 100 Oxygen Delivery Method 06/25/23 16:09 06/25/23 16:10 06/25/23 16:10 Temperature 94.1 F L Pulse Rate 88 Respiratory Rate 54 H Blood Pressure 138/96 H 135/85 Pulse Oximetry 100 Oxygen Delivery Method 06/25/23 16:15 06/25/23 16:15 06/25/23 16:20 Temperature 94.3 F L 94.1 F L Pulse Rate 87 84 Respiratory Rate 47 H 57 H Blood Pressure 136/96 H Pulse Oximetry 100 100 Oxygen Delivery Method Mechanical Ventilation 06/25/23 16:20 06/25/23 16:25 06/25/23 16:25 Temperature 94.1 F L Pulse Rate 82 Respiratory Rate 42 H Blood Pressure 136/95 H 133/87 Pulse Oximetry 100 Oxygen Delivery Method 06/25/23 16:30 06/25/23 16:30 06/25/23 16:35 Temperature 94.1 F L 94.1 F L Pulse Rate 80 81 Respiratory Rate 54 H 41 H Blood Pressure 134/89 Pulse Oximetry 99 99 Oxygen Delivery Method Mechanical Ventilation 06/25/23 16:35 06/25/23 16:40 06/25/23 16:40 Temperature 94.1 F L Pulse Rate 77 Respiratory Rate 52 H Blood Pressure 132/87 122/82 Pulse Oximetry 99 Oxygen Delivery Method 06/25/23 16:45 06/25/23 16:45 06/25/23 16:50 Temperature 94.1 F L 94.1 F L Pulse Rate 76 74 Respiratory Rate 45 H 37 H Blood Pressure 121/84 Pulse Oximetry 99 98 Oxygen Delivery Method Mechanical Ventilation 06/25/23 16:50 06/25/23 16:55 06/25/23 16:55 Temperature 94.1 F L Pulse Rate 72 Respiratory Rate 36 H Blood Pressure 118/84 113/80 Pulse Oximetry 98 Oxygen Delivery Method 06/25/23 17:00 06/25/23 17:00 06/25/23 17:05 Temperature 94.1 F L 94.1 F L Pulse Rate 72 71 Respiratory Rate 24 18 Blood Pressure 114/77 Pulse Oximetry 98 98 Oxygen Delivery Method Mechanical Ventilation 06/25/23 17:05 06/25/23 17:10 06/25/23 17:10 Temperature 93.9 F L Pulse Rate 70 Respiratory Rate 18 Blood Pressure 111/78 109/78 Pulse Oximetry 98 Oxygen Delivery Method 06/25/23 17:15 06/25/23 17:15 06/25/23 17:20 Temperature 93.9 F L 94.1 F L Pulse Rate 69 67 Respiratory Rate 18 18 Blood Pressure 111/78 Pulse Oximetry 98 98 Oxygen Delivery Method Mechanical Ventilation 06/25/23 17:20 06/25/23 17:25 06/25/23 17:25 Temperature 94.1 F L Pulse Rate 66 Respiratory Rate 18 Blood Pressure 105/72 100/71 Pulse Oximetry 97 Oxygen Delivery Method 06/25/23 17:30 06/25/23 17:30 06/25/23 17:35 Temperature 94.1 F L 94.1 F L Pulse Rate 65 64 Respiratory Rate 18 18 Blood Pressure 98/67 Pulse Oximetry 97 97 Oxygen Delivery Method 06/25/23 17:35 06/25/23 17:36 06/25/23 17:40 Temperature Pulse Rate Respiratory Rate Blood Pressure 97/65 97/64 Pulse Oximetry Oxygen Delivery Method Mechanical Ventilation 06/25/23 17:40 06/25/23 17:45 06/25/23 17:45 Temperature 94.3 F L 94.3 F L Pulse Rate 65 65 Respiratory Rate 18 18 Blood Pressure 96/65 Pulse Oximetry 98 98 Oxygen Delivery Method Mechanical Ventilation 06/25/23 17:50 06/25/23 17:55 06/25/23 17:56 Temperature 94.5 F L 94.5 F L 94.6 F L Pulse Rate 66 63 65 Respiratory Rate Blood Pressure Pulse Oximetry 98 100 100 Oxygen Delivery Method 06/25/23 17:56 06/25/23 18:00 06/25/23 18:00 Temperature 94.6 F L Pulse Rate 66 Respiratory Rate Blood Pressure 96/66 103/68 Pulse Oximetry 100 Oxygen Delivery Method 06/25/23 18:04 06/25/23 18:05 06/25/23 18:22 Temperature 95.5 F L Pulse Rate 78 66 Respiratory Rate 18 Blood Pressure 112/77 Pulse Oximetry 100 98 Oxygen Delivery Method 06/25/23 18:25 06/25/23 18:30 06/25/23 18:30 Temperature 95.5 F L 95.7 F L Pulse Rate 66 67 Respiratory Rate 18 18 Blood Pressure 82/52 L Pulse Oximetry 98 97 Oxygen Delivery Method 06/25/23 18:31 06/25/23 18:31 06/25/23 18:35 Temperature 95.7 F L 95.9 F L Pulse Rate 67 67 Respiratory Rate 18 18 Blood Pressure 81/53 L Pulse Oximetry 97 97 Oxygen Delivery Method 06/25/23 18:40 06/25/23 18:45 06/25/23 18:50 Temperature 95.9 F L 96.1 F L 96.3 F L Pulse Rate 66 63 66 Respiratory Rate 18 14 18 Blood Pressure Pulse Oximetry 97 100 98 Oxygen Delivery Method 06/25/23 18:55 06/25/23 18:59 06/25/23 19:00 Temperature 96.4 F L 96.4 F L Pulse Rate 68 68 Respiratory Rate 18 18 Blood Pressure 89/57 L Pulse Oximetry 98 98 Oxygen Delivery Method 06/25/23 19:00 06/25/23 19:05 06/25/23 19:10 Temperature 96.6 F L 96.6 F L 96.8 F L Pulse Rate 68 68 69 Respiratory Rate 18 18 18 Blood Pressure Pulse Oximetry 98 98 98 Oxygen Delivery Method 06/25/23 19:15 06/25/23 19:20 06/25/23 19:25 Temperature 97.0 F L 97.2 F L 97.3 F L Pulse Rate 70 71 71 Respiratory Rate 18 18 18 Blood Pressure Pulse Oximetry 98 98 98 Oxygen Delivery Method 06/25/23 19:30 06/25/23 19:30 06/25/23 19:35 Temperature 97.5 F L 97.7 F Pulse Rate 72 74 Respiratory Rate 18 18 Blood Pressure 93/58 L Pulse Oximetry 98 98 Oxygen Delivery Method 06/25/23 19:40 06/25/23 19:45 06/25/23 19:50 Temperature 97.9 F 98.1 F 98.2 F Pulse Rate 74 76 78 Respiratory Rate 18 18 18 Blood Pressure Pulse Oximetry 98 98 98 Oxygen Delivery Method 06/25/23 19:55 06/25/23 20:00 06/25/23 20:00 Temperature 98.4 F 98.6 F Pulse Rate 79 79 Respiratory Rate 18 18 Blood Pressure 104/66 Pulse Oximetry 97 97 Oxygen Delivery Method 06/25/23 20:00 06/25/23 20:05 Temperature 98.8 F Pulse Rate 80 Respiratory Rate 18 Blood Pressure Pulse Oximetry 97 Oxygen Delivery Method Mechanical Ventilation Oxygen Delivery Method Mechanical Ventilation Narrative Exam Narrative: intubated/sedated Resp Other: synchronous with vent Cardio Other: NSR< Objective Labs 06/25/23 15:15 06/25/23 15:15 Labs: Laboratory Results - last 24 hr 06/25/23 06/25/23 06/25/23 15:15 15:33 15:33 WBC 17.8 H RBC 4.68 Hgb 13.2 L Hct 39.9 L MCV 85.3 MCH 28.3 MCHC 33.1 RDW 14.3 Plt Count 232 Neut % (Auto) 83.4 H Lymph % (Auto) 6.0 L [place] % (Auto) 10.1 Eos % (Auto) 0.2 L Baso % (Auto) 0.3 Neut # (Auto) 21117 H Lymph # (Auto) 1100 [place] # (Auto) 1800 H Eos # (Auto) 0 Baso # (Auto) 100 ABG Sample Site ABG pH ABG pCO2 ABG pO2 ABG HCO3 ABG Total CO2 ABG O2 Saturation ABG Base Excess FiO2 Sodium 138 Potassium 3.4 Chloride 103 Carbon Dioxide 27 BUN 16 Creatinine 0.68 Estimated GFR > 60 BUN/Creatinine Ratio 23.5 H Glucose 125 H Lactate 1.5 Calcium 9.1 Magnesium 2.6 H Total Bilirubin 0.8 AST 34 ALT 26 Alkaline Phosphatase 65 Ammonia Total Creatine Kinase 430 H Troponin I < 0.012 Total Protein 7.1 Albumin 4.0 Globulin 3.1 Albumin/Globulin Ratio 1.3 Lipase 43 Procalcitonin 0.06 Prolactin 14.8 Urine Color Yellow Urine Appearance Clear Urine pH 5.5 Normal Ur Specific [place] >=1.030 H Urine Protein 1+ H Urine Glucose (UA) Negative Urine Ketones Trace H Urine Occult Blood Negative Urine Nitrate Negative Urine Bilirubin Negative Urine Urobilinogen 0.2 Ur Leukocyte Esterase Negative Urine RBC None seen Urine WBC 0-1/hpf Ur Squamous Epith Cells 0-1 /hpf Urine Bacteria None seen Hyaline Casts 0-1/lpf Urine Mucus 1+ H Ur Culture Indicated? Cult not indicated Vol Urine Centrifuged 10ml (spun) Salicylates < 1.0 U Opiates 300ng/mL cut Negative Ur Oxycodone Screen Negative Urine Methadone Screen Negative Acetaminophen < 10 Ur Barbiturates Screen Negative U Tricyclic Antidepress Positive H Ur Phencyclidine Scrn Negative Ur Amphetamines Screen Positive H U Methamphetamines Scrn Positive H Ur MDMA Scrn (Ecstasy) Negative U Benzodiazepines Scrn Negative [place] Urine Cocaine Screen Positive H U Marijuana (THC) Screen Negative Urine Specific [place] Normal Ethyl Alcohol < 10 Ur Creatinine Normal Chlamy pneumoniae PCR Adenovirus (PCR) B.parapertussis DNA PCR Coronavirus OC43 (PCR) Coronavirus HKU1 (PCR) Coronavirus 229E (PCR) SARS-CoV-2 (PCR) Coronavirus NL63 (PCR) Human Metapneumovir PCR Influenza Type A (PCR) Influenza Type B (PCR) M. pneumoniae (PCR) Parainfluenza 1 (PCR) Parainfluenza 2 (PCR) Parainfluenza 3 (PCR) Parainfluenza 4 (PCR) RSV (PCR) Entero/Rhino (PCR) 06/25/23 06/25/23 06/25/23 15:48 16:42 16:46 WBC RBC Hgb Hct MCV MCH MCHC RDW Plt Count Neut % (Auto) Lymph % (Auto) [place] % (Auto) Eos % (Auto) Baso % (Auto) Neut # (Auto) Lymph # (Auto) [place] # (Auto) Eos # (Auto) Baso # (Auto) ABG Sample Site Left brachial ABG pH 7.37 ABG pCO2 43.0 ABG pO2 92 ABG HCO3 25 ABG Total CO2 26 ABG O2 Saturation 97 ABG Base Excess 0.0 FiO2 40 Sodium Potassium Chloride Carbon Dioxide BUN Creatinine Estimated GFR BUN/Creatinine Ratio Glucose Lactate Calcium Magnesium Total Bilirubin AST ALT Alkaline Phosphatase Ammonia 12 Total Creatine Kinase Troponin I Total Protein Albumin Globulin Albumin/Globulin Ratio Lipase Procalcitonin Prolactin Urine Color Urine Appearance Urine pH Ur Specific [place] Urine Protein Urine Glucose (UA) Urine Ketones Urine Occult Blood Urine Nitrate Urine Bilirubin Urine Urobilinogen Ur Leukocyte Esterase Urine RBC Urine WBC Ur Squamous Epith Cells Urine Bacteria Hyaline Casts Urine Mucus Ur Culture Indicated? Vol Urine Centrifuged Salicylates U Opiates 300ng/mL cut Ur Oxycodone Screen Urine Methadone Screen Acetaminophen Ur Barbiturates Screen U Tricyclic Antidepress Ur Phencyclidine Scrn Ur Amphetamines Screen U Methamphetamines Scrn Ur MDMA Scrn (Ecstasy) U Benzodiazepines Scrn [place] 0.4 L Urine Cocaine Screen U Marijuana (THC) Screen Urine Specific [place] Ethyl Alcohol Ur Creatinine Chlamy pneumoniae PCR Not detected Adenovirus (PCR) Not detected B.parapertussis DNA PCR Not detected Coronavirus OC43 (PCR) Not detected Coronavirus HKU1 (PCR) Not detected Coronavirus 229E (PCR) Not detected SARS-CoV-2 (PCR) Not detected Coronavirus NL63 (PCR) Not detected Human Metapneumovir PCR Not detected Influenza Type A (PCR) Not detected Influenza Type B (PCR) Not detected M. pneumoniae (PCR) Not detected Parainfluenza 1 (PCR) Not detected Parainfluenza 2 (PCR) Not detected Parainfluenza 3 (PCR) Not detected Parainfluenza 4 (PCR) Not detected RSV (PCR) Not detected Entero/Rhino (PCR) Not detected Assessment & Plan Assessment and plan (1) Drug overdose: Status: Acute (2) Acute encephalopathy: Status: Acute (3) Acute respiratory failure: Status: Acute Assessment & Plan narrative: vent/sedation bundle neurocehcks q1 hr CT c spine on porpofoll will start keppra given he is high for seizures LTVV trend abg montor HR closely, if criss start bicabr gtt NPO for now trend bmo and ck q4 hrs dvt ppx mnonitor UO monitor off abx total CCT 51 min
[2023-06-25 20:58] LABS: MRSA (Nasal) PCR Not Detected (Not Detect)
[2023-06-25] MEDS: LACTATED RINGERS 1,000 ML 150 ML IV (20:59)
--- NOTE | 2023-06-25 21:05 | PC.NURSE ---
Addendum entered by Ludmila Johnson R.N. 06/26/23 06:18: Propofol titrated down to 25mcg/kg/min for several hrs until 4am assessment and oral care, then became agitated, thrashing, and pulling on restraints, did not open eyes or follow commands, propofol increased back to 35mcg/min to calm patient down. LS became more coarse throughout shift, scant thick white sputum sx from ETT, RR remained 18 when agitated, no overriding vent. Remains SR without increasing QRS or prolonged QTc, VSS, see rhythm strips and vital trends. 400ml thin brown fluid out of OGT. Total 425ml cloudy yellow to red UOP via [place]. Original Note: Airline Hostess Notes-Received patient on ventilator-FIO2 30% TV 450 RR 18 Peep 5, SpO2 >97% LS slightly clear/ slightly coarse. BP 90s-105/60s MAP>6, NSR, no prolonged QTc=0.442, QRS=0.101. Propofol at 30mcg/kg/min, main IVF changed to LR at 150ml/hr. Currently unresponsive to stimuli, pupils 2mm equal and sluggish. Bear Hugger removed, Temp 99.9. C-spine collar in place. Soft wrist restraints in place, order is current. Tele ICU consulted, visualized patient, orders received. Family briefly at bedside, left contact #s on white board. Continuos monitoring for seizure activity and hypotension in addition to other assessment changes.
[2023-06-25 21:47] LABS: Add Manual Diff / Slide Review NO; Basophils Absolute Auto 0 /uL (0-100); Basophils Percent Auto 0.3 % (0-2); Eosinophils Absolute Auto 100 /uL (0-450); Hematocrit 36.4 % (41-53); Hemoglobin 12.1 g/dL (13.5-17.5); Lymphocytes Absolute Auto 1900 /uL (1100-4500); Lymphocytes Percent Auto 15.2 % (25-40); Mean Corpuscular HGB Conc 33.3 % (30-36); Mean Corpuscular Volume 84.2 fL (80-100); Monocytes Absolute Auto 1100 /uL (0-900); Monocytes Percent Auto 8.8 % (3-14); Neutrophils Absolute Auto 9100 /uL (1500-7000); Neutrophils Percent Auto 74.7 % (50-75); Platelet Count 232 X10^3/uL (150-400); Red Blood Cell Count 4.32 X10^6/uL (4.5-5.9); Red Cell Distribution Width 14.6 % (11.6-14.8); White Blood Cell Count 12.2 X10^3/uL (4.5-11.0)
[2023-06-25 22:16] LABS: Lithium 0.4 mmol/L (0.6-1.2)
[2023-06-25 22:19] LABS: BUN Creatinine Ratio 20.9 (6-22); Blood Urea Nitrogen 14 mg/dL (9-20); Calcium 8.8 mg/dL (8.4-10.2); Carbon Dioxide 28 mmol/L (22-32); Chloride 106 mmol/L (98-107); Creatine Kinase 280 U/L (55-170); Estimated Glomerular Filt Rate > 60 mL/min (>60); Glucose 90 mg/dL (70-100); HEMOLYSIS < 15 (0-50); Potassium 3.2 mmol/L (3.4-5.1); Sodium 138 mmol/L (137-145)
[2023-06-25 22:26] LABS: Magnesium 2.4 mg/dL (1.6-2.3); Phosphorous 3.5 mg/dL (2.5-4.5)
[2023-06-26] VITALS (79 sets, daily range): BP systolic 112–149; BP diastolic 73–93; PULSE 70–82; RESP 18–48; TEMP 37.1–38.1; O2SAT 91–100
[2023-06-26 01:21] LABS: BUN Creatinine Ratio 21.2 (6-22); Blood Urea Nitrogen 14 mg/dL (9-20); Calcium 8.7 mg/dL (8.4-10.2); Carbon Dioxide 27 mmol/L (22-32); Chloride 106 mmol/L (98-107); Estimated Glomerular Filt Rate > 60 mL/min (>60); Glucose 94 mg/dL (70-100); HEMOLYSIS < 15 (0-50); Potassium 3.1 mmol/L (3.4-5.1); Sodium 137 mmol/L (137-145)
[2023-06-26] MEDS: propofoL 1,000 MG/100 ML VIAL 12.016 MG IV (02:48)
[2023-06-26] MEDS: LACTATED RINGERS 1,000 ML 150 ML IV ×4 (03:23→23:55)
[2023-06-26 05:14] LABS: Acetaminophen < 10 ug/mL (10-30); BUN Creatinine Ratio 19.4 (6-22); Blood Urea Nitrogen 13 mg/dL (9-20); Calcium 8.7 mg/dL (8.4-10.2); Carbon Dioxide 28 mmol/L (22-32); Chloride 106 mmol/L (98-107); Creatine Kinase 195 U/L (55-170); Estimated Glomerular Filt Rate > 60 mL/min (>60); Glucose 92 mg/dL (70-100); HEMOLYSIS < 15 (0-50); Potassium 3.1 mmol/L (3.4-5.1); Salicylate < 1.0 mg/dL (<20); Sodium 137 mmol/L (137-145)
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
[2023-06-26] MEDS: ENOXAPARIN 40 MG/0.4 ML SYRINGE SUBCUT (08:10)
[2023-06-26] MEDS: PANTOPRAZOLE 40 MG VIAL IV (08:10)
[2023-06-26] MEDS: levETIRAcetam 500 MG in SODIUM CHLORIDE 0.9% 100 ML 420 MG IV ×2 (08:10→19:45)
[2023-06-26] MEDS: POTASSIUM CHLORIDE IN WATER 10 MEQ/100 ML PIGGYBACK 100 MEQ IV ×6 (08:10→14:07)
[2023-06-26] MEDS: propofoL 1,000 MG/100 ML VIAL 19.225 MG IV (09:13)
--- NOTE | 2023-06-26 09:37 | PM.PN.EICU ---
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 Interval history: The patient was seen via real-time interactive audiovisual communication. Camera activated. Briefly, a 52 years old male with history of bipolar disorder, TBI and seizure disorder, who was found unresponsive in his car by his cousin around 1:30 PM, noted to have foaming at the mouth and pills strewn all over his vehicle with evidence of emesis, When EMS arrived at the scene, they noted him to be in respiratory distress with gurgling sounds concerning for aspiration. He equired to be intubated on the scene for airway protection, and transported to the hospital for ongoing care. It was unclear exactly which medications he took but suspected to be several prescription meds including Seroquel as the bottle was empty, and urine toxic screen positive for multiple substances. He was admitted to ICU on ventilator. No obvious signs of seizures or vertical nystagmus on admission. Most recent labs/imaging studies reviewed. Noted WBC 12.2, hemoglobin 12.1, platelet count 232. Sodium 137, potassium 3.1, total CK1 95. Rest of blood chemistry unremarkable. Urine tox screen positive for tricyclic antidepressants, amphetamines, lithium and cocaine. CT head without contrast negative for acute intracranial hemorrhage. Initial chest x-ray on admission with no evidence of pneumothorax, pleural effusion or focal consolidation. Current vent settings reviewed. PRVC, TV 450cc, RR 18, FiO2 30% PEEP of 5. Currently on propofol gtt. at 40 but awake. Per RN, when propofol turned down to 20, very agitated and restless, followed some simple commands (opened eyes, squeezed hands). Hemodynamically stable. Afebrile. No acute issues reported overnight. Current Medications Current Medications Medications: Home Medications lamotrigine 200 mg tablet (Lamictal) 400 mg (2 x 200 mg) PO BID #120 tabs 10/07/19 [Rx Confirmed 03/02/23] levetiracetam 1,000 mg tablet (Keppra) 1,000 mg PO BID 10/07/19 [History Confirmed 03/02/23] mirtazapine 15 mg tablet 15 mg PO BEDTIME #30 tabs 10/01/20 [Rx Confirmed 03/02/23] quetiapine 50 mg tablet 150 mg (3 x 50 mg) PO HS #270 tabs 10/01/20 [Rx Confirmed 03/02/23] Visit Medications (administered) Generic Name Dose Route Start Last Admin Trade Name Shawna PRN Reason Stop Dose Admin Enoxaparin Sodium 40 mg 06/26/23 09:00 06/26/23 08:10 Enoxaparin 40 Mg/0.4 Ml Syringe SUBCUT 40 mg DAILY LARISA Administration Propofol 1,000 mg in 100 mls @ 2.403 mls/hr 06/25/23 19:15 06/26/23 09:13 Propofol IV 40 mcg/kg/min TITRATE LARISA 19.225 mls/hr Administration Protocol 5 MCG/KG/MIN Lactated Ringer's 1,000 mls @ 150 mls/hr 06/25/23 21:00 06/26/23 03:23 Lactated Ringers IV 150 mls/hr CONT LARISA Administration POTASSIUM CHLORIDE IN WATER 10 meq in 100 mls @ 100 mls/hr 06/26/23 07:30 06/26/23 09:16 Potassium Cl 10 Meq/100 Ml [place] IV 06/26/23 13:29 100 mls/hr Q1H LARISA Administration Levetiracetam 500 mg/ Sodium 105 mls @ 420 mls/hr 06/26/23 07:45 06/26/23 08:54 Chloride IV Infused Q12H LARISA Infusion Pantoprazole Sodium 40 mg 06/26/23 09:00 06/26/23 08:10 Pantoprazole 40 Mg Vial IV 40 mg DAILY LARISA Administration Objective Ventilator Parameters: Ventilator Settings FiO2 30 RT Vent Frequency 18 Ventilator Tidal Volume 450 Exhaled Positive End Expiratory 5 Pressure Inspiratory Phase Time 0.9 I:E Ratio 1:2.7 Patient Position HOB >= 30 degrees Labs 06/25/23 21:30 06/26/23 04:50 Labs: Laboratory Results - last 24 hr 06/25/23 06/25/23 06/25/23 15:15 15:33 15:33 WBC 17.8 H RBC 4.68 Hgb 13.2 L Hct 39.9 L MCV 85.3 MCH 28.3 MCHC 33.1 RDW 14.3 Plt Count 232 Neut % (Auto) 83.4 H Lymph % (Auto) 6.0 L [place] % (Auto) 10.1 Eos % (Auto) 0.2 L Baso % (Auto) 0.3 Neut # (Auto) 95617 H Lymph # (Auto) 1100 [place] # (Auto) 1800 H Eos # (Auto) 0 Baso # (Auto) 100 ABG Sample Site ABG pH ABG pCO2 ABG pO2 ABG HCO3 ABG Total CO2 ABG O2 Saturation ABG Base Excess FiO2 Sodium 138 Potassium 3.4 Chloride 103 Carbon Dioxide 27 BUN 16 Creatinine 0.68 Estimated GFR > 60 BUN/Creatinine Ratio 23.5 H Glucose 125 H Lactate 1.5 Calcium 9.1 Phosphorus Magnesium 2.6 H Total Bilirubin 0.8 AST 34 ALT 26 Alkaline Phosphatase 65 Ammonia Total Creatine Kinase 430 H Troponin I < 0.012 Total Protein 7.1 Albumin 4.0 Globulin 3.1 Albumin/Globulin Ratio 1.3 Lipase 43 Procalcitonin 0.06 Prolactin 14.8 Urine Color Yellow Urine Appearance Clear Urine pH 5.5 Normal Ur Specific [place] >=1.030 H Urine Protein 1+ H Urine Glucose (UA) Negative Urine Ketones Trace H Urine Occult Blood Negative Urine Nitrate Negative Urine Bilirubin Negative Urine Urobilinogen 0.2 Ur Leukocyte Esterase Negative Urine RBC None seen Urine WBC 0-1/hpf Ur Squamous Epith Cells 0-1 /hpf Urine Bacteria None seen Hyaline Casts 0-1/lpf Urine Mucus 1+ H Ur Culture Indicated? Cult not indicated Vol Urine Centrifuged 10ml (spun) Nasal Screen MRSA (PCR) Salicylates < 1.0 U Opiates 300ng/mL cut Negative Ur Oxycodone Screen Negative Urine Methadone Screen Negative Acetaminophen < 10 Ur Barbiturates Screen Negative U Tricyclic Antidepress Positive H Ur Phencyclidine Scrn Negative Ur Amphetamines Screen Positive H U Methamphetamines Scrn Positive H Ur MDMA Scrn (Ecstasy) Negative U Benzodiazepines Scrn Negative [place] Urine Cocaine Screen Positive H U Marijuana (THC) Screen Negative Urine Specific [place] Normal Ethyl Alcohol < 10 Ur Creatinine Normal Chlamy pneumoniae PCR Adenovirus (PCR) B.parapertussis DNA PCR Coronavirus OC43 (PCR) Coronavirus HKU1 (PCR) Coronavirus 229E (PCR) SARS-CoV-2 (PCR) Coronavirus NL63 (PCR) Human Metapneumovir PCR Influenza Type A (PCR) Influenza Type B (PCR) M. pneumoniae (PCR) Parainfluenza 1 (PCR) Parainfluenza 2 (PCR) Parainfluenza 3 (PCR) Parainfluenza 4 (PCR) RSV (PCR) Entero/Rhino (PCR) 06/25/23 06/25/23 06/25/23 15:48 16:42 16:46 WBC RBC Hgb Hct MCV MCH MCHC RDW Plt Count Neut % (Auto) Lymph % (Auto) [place] % (Auto) Eos % (Auto) Baso % (Auto) Neut # (Auto) Lymph # (Auto) [place] # (Auto) Eos # (Auto) Baso # (Auto) ABG Sample Site Left brachial ABG pH 7.37 ABG pCO2 43.0 ABG pO2 92 ABG HCO3 25 ABG Total CO2 26 ABG O2 Saturation 97 ABG Base Excess 0.0 FiO2 40 Sodium Potassium Chloride Carbon Dioxide BUN Creatinine Estimated GFR BUN/Creatinine Ratio Glucose Lactate Calcium Phosphorus Magnesium Total Bilirubin AST ALT Alkaline Phosphatase Ammonia 12 Total Creatine Kinase Troponin I Total Protein Albumin Globulin Albumin/Globulin Ratio Lipase Procalcitonin Prolactin Urine Color Urine Appearance Urine pH Ur Specific [place] Urine Protein Urine Glucose (UA) Urine Ketones Urine Occult Blood Urine Nitrate Urine Bilirubin Urine Urobilinogen Ur Leukocyte Esterase Urine RBC Urine WBC Ur Squamous Epith Cells Urine Bacteria Hyaline Casts Urine Mucus Ur Culture Indicated? Vol Urine Centrifuged Nasal Screen MRSA (PCR) Salicylates U Opiates 300ng/mL cut Ur Oxycodone Screen Urine Methadone Screen Acetaminophen Ur Barbiturates Screen U Tricyclic Antidepress Ur Phencyclidine Scrn Ur Amphetamines Screen U Methamphetamines Scrn Ur MDMA Scrn (Ecstasy) U Benzodiazepines Scrn [place] 0.4 L Urine Cocaine Screen U Marijuana (THC) Screen Urine Specific [place] Ethyl Alcohol Ur Creatinine Chlamy pneumoniae PCR Not detected Adenovirus (PCR) Not detected B.parapertussis DNA PCR Not detected Coronavirus OC43 (PCR) Not detected Coronavirus HKU1 (PCR) Not detected Coronavirus 229E (PCR) Not detected SARS-CoV-2 (PCR) Not detected Coronavirus NL63 (PCR) Not detected Human Metapneumovir PCR Not detected Influenza Type A (PCR) Not detected Influenza Type B (PCR) Not detected M. pneumoniae (PCR) Not detected Parainfluenza 1 (PCR) Not detected Parainfluenza 2 (PCR) Not detected Parainfluenza 3 (PCR) Not detected Parainfluenza 4 (PCR) Not detected RSV (PCR) Not detected Entero/Rhino (PCR) Not detected 06/25/23 06/25/23 06/26/23 19:41 21:30 01:03 WBC 12.2 H RBC 4.32 L Hgb 12.1 L Hct 36.4 L MCV 84.2 MCH 28.0 MCHC 33.3 RDW 14.6 Plt Count 232 Neut % (Auto) 74.7 Lymph % (Auto) 15.2 L [place] % (Auto) 8.8 Eos % (Auto) 1.0 L Baso % (Auto) 0.3 Neut # (Auto) 9100 H Lymph # (Auto) 1900 [place] # (Auto) 1100 H Eos # (Auto) 100 Baso # (Auto) 0 ABG Sample Site ABG pH ABG pCO2 ABG pO2 ABG HCO3 ABG Total CO2 ABG O2 Saturation ABG Base Excess FiO2 Sodium 138 137 Potassium 3.2 L 3.1 L Chloride 106 106 Carbon Dioxide 28 27 BUN 14 14 Creatinine 0.67 0.66 Estimated GFR > 60 > 60 BUN/Creatinine Ratio 20.9 21.2 Glucose 90 94 Lactate Calcium 8.8 8.7 Phosphorus 3.5 Magnesium 2.4 H Total Bilirubin AST ALT Alkaline Phosphatase Ammonia Total Creatine Kinase 280 H Troponin I Total Protein Albumin Globulin Albumin/Globulin Ratio Lipase Procalcitonin Prolactin Urine Color Urine Appearance Urine pH Ur Specific [place] Urine Protein Urine Glucose (UA) Urine Ketones Urine Occult Blood Urine Nitrate Urine Bilirubin Urine Urobilinogen Ur Leukocyte Esterase Urine RBC Urine WBC Ur Squamous Epith Cells Urine Bacteria Hyaline Casts Urine Mucus Ur Culture Indicated? Vol Urine Centrifuged Nasal Screen MRSA (PCR) Not detected Salicylates U Opiates 300ng/mL cut Ur Oxycodone Screen Urine Methadone Screen Acetaminophen Ur Barbiturates Screen U Tricyclic Antidepress Ur Phencyclidine Scrn Ur Amphetamines Screen U Methamphetamines Scrn Ur MDMA Scrn (Ecstasy) U Benzodiazepines Scrn [place] 0.4 L Urine Cocaine Screen U Marijuana (THC) Screen Urine Specific [place] Ethyl Alcohol Ur Creatinine Chlamy pneumoniae PCR Adenovirus (PCR) B.parapertussis DNA PCR Coronavirus OC43 (PCR) Coronavirus HKU1 (PCR) Coronavirus 229E (PCR) SARS-CoV-2 (PCR) Coronavirus NL63 (PCR) Human Metapneumovir PCR Influenza Type A (PCR) Influenza Type B (PCR) M. pneumoniae (PCR) Parainfluenza 1 (PCR) Parainfluenza 2 (PCR) Parainfluenza 3 (PCR) Parainfluenza 4 (PCR) RSV (PCR) Entero/Rhino (PCR) 06/26/23 04:50 WBC RBC Hgb Hct MCV MCH MCHC RDW Plt Count Neut % (Auto) Lymph % (Auto) [place] % (Auto) Eos % (Auto) Baso % (Auto) Neut # (Auto) Lymph # (Auto) [place] # (Auto) Eos # (Auto) Baso # (Auto) ABG Sample Site ABG pH ABG pCO2 ABG pO2 ABG HCO3 ABG Total CO2 ABG O2 Saturation ABG Base Excess FiO2 Sodium 137 Potassium 3.1 L Chloride 106 Carbon Dioxide 28 BUN 13 Creatinine 0.67 Estimated GFR > 60 BUN/Creatinine Ratio 19.4 Glucose 92 Lactate Calcium 8.7 Phosphorus Magnesium Total Bilirubin AST ALT Alkaline Phosphatase Ammonia Total Creatine Kinase 195 H Troponin I Total Protein Albumin Globulin Albumin/Globulin Ratio Lipase Procalcitonin Prolactin Urine Color Urine Appearance Urine pH Ur Specific [place] Urine Protein Urine Glucose (UA) Urine Ketones Urine Occult Blood Urine Nitrate Urine Bilirubin Urine Urobilinogen Ur Leukocyte Esterase Urine RBC Urine WBC Ur Squamous Epith Cells Urine Bacteria Hyaline Casts Urine Mucus Ur Culture Indicated? Vol Urine Centrifuged Nasal Screen MRSA (PCR) Salicylates < 1.0 U Opiates 300ng/mL cut Ur Oxycodone Screen Urine Methadone Screen Acetaminophen < 10 Ur Barbiturates Screen U Tricyclic Antidepress Ur Phencyclidine Scrn Ur Amphetamines Screen U Methamphetamines Scrn Ur MDMA Scrn (Ecstasy) U Benzodiazepines Scrn [place] Urine Cocaine Screen U Marijuana (THC) Screen Urine Specific [place] Ethyl Alcohol Ur Creatinine Chlamy pneumoniae PCR Adenovirus (PCR) B.parapertussis DNA PCR Coronavirus OC43 (PCR) Coronavirus HKU1 (PCR) Coronavirus 229E (PCR) SARS-CoV-2 (PCR) Coronavirus NL63 (PCR) Human Metapneumovir PCR Influenza Type A (PCR) Influenza Type B (PCR) M. pneumoniae (PCR) Parainfluenza 1 (PCR) Parainfluenza 2 (PCR) Parainfluenza 3 (PCR) Parainfluenza 4 (PCR) RSV (PCR) Entero/Rhino (PCR) Exam Vital Signs (past 8 hours): - 06/26/23 01:40 06/26/23 01:45 06/26/23 01:50 Temperature 99.0 F 98.8 F 98.8 F Pulse Rate 74 74 74 Respiratory Rate 18 18 18 Blood Pressure Pulse Oximetry 99 99 99 Oxygen Delivery Method Fraction of Inspired Oxygen 06/26/23 01:55 06/26/23 02:00 06/26/23 02:00 Temperature 98.8 F 99.0 F 99.0 F Pulse Rate 73 74 73 Respiratory Rate 18 18 18 Blood Pressure 117/76 Pulse Oximetry 99 99 99 Oxygen Delivery Method Fraction of Inspired Oxygen 30 06/26/23 02:00 06/26/23 02:05 06/26/23 02:10 Temperature 99.0 F 99.0 F Pulse Rate 74 74 Respiratory Rate 18 18 Blood Pressure 117/76 Pulse Oximetry 99 98 Oxygen Delivery Method Fraction of Inspired Oxygen 06/26/23 02:15 06/26/23 02:20 06/26/23 02:25 Temperature 99.0 F 99.0 F 99.0 F Pulse Rate 74 74 74 Respiratory Rate 18 18 18 Blood Pressure Pulse Oximetry 98 99 99 Oxygen Delivery Method Fraction of Inspired Oxygen 06/26/23 02:30 06/26/23 02:35 06/26/23 02:40 Temperature 99.0 F 99.0 F 99.0 F Pulse Rate 74 74 75 Respiratory Rate 18 18 18 Blood Pressure Pulse Oximetry 98 98 99 Oxygen Delivery Method Fraction of Inspired Oxygen 06/26/23 02:45 06/26/23 02:50 06/26/23 02:55 Temperature 99.0 F 99.0 F 99.0 F Pulse Rate 74 74 75 Respiratory Rate 18 18 18 Blood Pressure Pulse Oximetry 98 99 99 Oxygen Delivery Method Fraction of Inspired Oxygen 06/26/23 03:00 06/26/23 03:00 06/26/23 03:05 Temperature 99.1 F 99.1 F Pulse Rate 75 75 Respiratory Rate 18 18 Blood Pressure 123/78 Pulse Oximetry 99 99 Oxygen Delivery Method Fraction of Inspired Oxygen 06/26/23 03:10 06/26/23 03:15 06/26/23 03:20 Temperature 99.1 F 99.1 F 99.1 F Pulse Rate 75 75 75 Respiratory Rate 18 18 18 Blood Pressure Pulse Oximetry 99 99 98 Oxygen Delivery Method Fraction of Inspired Oxygen 06/26/23 03:25 06/26/23 03:30 06/26/23 03:35 Temperature 99.1 F 99.1 F 99.1 F Pulse Rate 75 74 74 Respiratory Rate 18 18 18 Blood Pressure Pulse Oximetry 98 98 98 Oxygen Delivery Method Fraction of Inspired Oxygen 06/26/23 03:40 06/26/23 03:45 06/26/23 04:00 Temperature 99.1 F 99.1 F Pulse Rate 74 74 Respiratory Rate 18 18 Blood Pressure Pulse Oximetry 98 98 Oxygen Delivery Method Mechanical Ventilation Fraction of Inspired Oxygen 06/26/23 04:00 06/26/23 05:00 06/26/23 06:00 Temperature 99.3 F 99.3 F 99.3 F Pulse Rate 80 75 74 Respiratory Rate 18 18 18 Blood Pressure 117/78 132/82 127/80 Pulse Oximetry 99 98 98 Oxygen Delivery Method Fraction of Inspired Oxygen 30 30 30 06/26/23 07:00 06/26/23 08:00 06/26/23 08:05 Temperature 99.3 F 99.3 F 99.3 F Pulse Rate 75 75 Respiratory Rate 18 18 18 Blood Pressure 135/82 137/84 Pulse Oximetry 98 98 98 Oxygen Delivery Method Fraction of Inspired Oxygen 06/26/23 08:10 06/26/23 08:15 06/26/23 08:20 Temperature 99.3 F 99.3 F 99.3 F Pulse Rate 75 75 75 Respiratory Rate 18 18 18 Blood Pressure Pulse Oximetry 98 98 98 Oxygen Delivery Method Fraction of Inspired Oxygen 06/26/23 08:25 06/26/23 08:30 06/26/23 08:35 Temperature 99.3 F 99.3 F 99.1 F Pulse Rate 75 75 81 Respiratory Rate 18 18 18 Blood Pressure Pulse Oximetry 98 98 99 Oxygen Delivery Method Fraction of Inspired Oxygen 06/26/23 08:40 Temperature 99.3 F Pulse Rate 78 Respiratory Rate 18 Blood Pressure Pulse Oximetry 99 Oxygen Delivery Method Fraction of Inspired Oxygen Fraction of Inspired Oxygen 30 Oxygen Delivery Method Mechanical Ventilation Narrative Exam Narrative: Intubated, sedated, still awake, restless in bed. Moving all 4 extremities. Assessment & Plan Assessment & Plan narrative: ASSESSMENT/PLAN: # Intentional drug overdose / Suspect suicidal attempt: - Suspected to have overdosed on multiple substances including prescription medications Seroquel, lamotrigine, mirtazapine as well as illicit substances such as cocaine and methamphetamine. - Urine drug screen on admission positive for tricyclic antidepressants, amphetamines, lithium and cocaine. - Required to be intubated at the scene for airway protection. - Initial CT head without contrast negative for acute intracranial process. - Continue to monitor electrolytes, Mg, Phos, CK levels. - If develops cardiac arrhythmia or metabolic acidosis with pH less than 7.25, may consider bicarb. Follow-up with ABG. - Keep in touch with poison control and follow the recommendations. - When extubated and appropriate, need social work and psychiatry consultation - Follow-up on CT cervical spine results. Keep c-collar in place for now. # Acute respiratory failure: - Intubated mainly for airway protection. - Initially concern for aspiration but chest x-ray with no evidence of focal infiltrates. - Afebrile with no evidence of infectious process. Agree with holding off on antibiotics for now. - Currently requiring minimal vent settings. Currently, on Propofol gtt. Transition to Precedex gtt and plan for SBT now given improvement in his mental status. - RASS goal 0 to -1. Would minimize sedation as much as possible. - C/w vent support per lung protective strategy (TV <6.5 ml/kg by IBW, plat pressure < 30, FiO2 goal <60%) and c/w ABCDE bundle while intubated. - C/w daily sedation vacation (SAT) and vent weaning as tolerated. Evaluate today SAT/SBT and extubate if meets criteria. # Altered level of consciousness: - In the setting of acute toxic encephalopathy. - CT head without contrast negative for acute intracranial process. - Minimize sedation as much as possible to reevaluate neuro exam/mental status more frequently. - Neuro checks every to 1-2 hours. - No need for further workup including MRI brain or EEG at this time. Discussed with primary team. # History of TBI / Seizure disorder: - Resumed Keppra. - Aspiration/seizure precautions. ICU BUNDLE: # FEN: Currently NPO. Start tube feeding if unable to be extubated today. # Glucose: fairly controlled. C/w Accu checks Q6 hours and SSI. BG goal 140-180 # Prophylaxis: Lovenox subcu for DVT prophylaxis, PPI for stress ulcer prophylaxis # Lines/tubes: PIV, Ortiz, ET tube, OG tube # CODE STATUS: Full code # Disposition: Remains in ICU Above plan was discussed with rounding team including bedside RN during tele-ICU multidisciplinary rounds this morning. We will continue to follow. Please call us if any additional questions.
[2023-06-26] MEDS: dexmedeTOMIDine in 0.9 % NaCL 400 MCG/100 ML PLAST..BAG IV (09:58)
--- NOTE | 2023-06-26 11:39 | PC.NURSE ---
Addendum entered by Caity Ashraf R.N. 06/26/23 13:56: Patient able to participate in SBT, started by RT at 1224. Precedex gtt infusing and propofol off. Pt did well, SPO2 remained in the upper 90s and RR was WNL, able to follow directions. Intermittently agitated/frustrated but able to reorient/calm. Extubated at 1315 after discussion and review of SBT with Dr. Goodman, order received. On 2L NC with SpO2 in the upper 90s, pt with hoarse voice, encouraged to rest and to cough to clear airway, oral care provided. Breathing without issue. Oriented x3 but speech is difficult to understand and to follow at times. Family at bedside. Oriented to call light. Bed alarm on for safety. Restraints off and OG out at time of extubation 1315. Remains on precedex, titrating down. Original Note: Day Shift Note Patient sedated on propofol and on mechanical ventilator on AM assessment. Pt minimally responsive on initial assessment, pupils equal and at 2 mm, reactive. Lung sounds clear, minimal secretions via ET tube, vent settings unchanged from admit (see RT charting). SpO2 upper 90s, SR in the 70s. Poison control called and were updated on pt status, they have signed off at this time. Propofol decreased in an effort to attempt an SBT but pt became agitated, pulling at restraints and reaching for ET tube/IVs. Very difficult to reorient and redirect, thrashing about in the bed. Family at bedside does assist in calming pt but not for long periods. Pt was able to open eyes and squeeze hands on command. Reviewed with Dr. Goodman during rounds and order received for precedex with plan to titrate off propofol as able to facilitate pt participation in SBT. Propofol currently at 10 mcg/kg/min and precedex at 1.4 mcg/kg/hr. Pt resting calmly with RASS -2 although still has periods of agitation. Will continue to manage sedation with goal of SBT today. Family continues at beside.
--- NOTE | 2023-06-26 12:41 | RT ---
Pt alert and following some directions, placed on spont. mode on mechanical ventilator: PSV 5/ PEEP 5, FiO2 30% per Dr. Goodman at 1224. Noting adequate volumes and minute ventilation. Pt tolerating well, RN at bedside. Will cont. to monitor the pt closely.
--- NOTE | 2023-06-26 13:31 | RT ---
Addendum entered by Laron Griffith 06/26/23 13:45: Also, no stridor noted at 1332. Original Note: Dr. Goodman notified regarding pt's weaning trial thus far and doctor gave a verbal order for endotracheal extubation. Pt extubated at 1315. Placed on 2L NC. Pt is alert and oriented. RR 24 BPM, normal WOB. Encouraging the pt to deep breath and cough. SpO2 99%, HR 82 BPM. RN at bedside currently at 1332.
[2023-06-26] MEDS: dexmedeTOMIDine in 0.9 % NaCL 400 MCG/100 ML PLAST..BAG 21.75 MCG IV ×2 (14:07→22:55)
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
[2023-06-26 16:20] LABS: HEMOLYSIS < 15 (0-50); Potassium 4.1 mmol/L (3.4-5.1)
--- NOTE | 2023-06-26 17:16 | PM.EVENT ---
Event Note Date Patient Seen: 06/26/23 Time Patient Seen: 17:16 Event Note (Rapid Response, Code, or fall): Patient seen later in the day. He was extubated after being started on Precedex by the tele farmworker rice. He has had no respiratory issues. He remains fairly agitated despite high dose Precedex. He was able intermittently to answer questions appropriately or answers questions that are being asked in the room of his family. Because of his agitation in his Ortiz catheter was also removed. At his request he was given a full liquid diet. Still unable to answer as to what exactly happened to him Altogether this looks to me more like he had a seizure, a seizure perhaps due in part to his drug use including the stimulants and the cocaine, and this is a postictal state which I have seen with this patient multiple times in the past. I would think that this will begin to resolve in the next 24-48 hours if that is the case. For his agitation may require some additional medication I think lorazepam is probably the best choice given what is already in his system such as probably the quetiapine etcetera. Also found out the reason he switched primary care providers was insurance reasons, will need to make sure that his new PCP in [place] gets copies of his hospitalization information
[2023-06-26] MEDS: LORazepam 2 MG/ML INJ IV ×2 (17:31→23:55)
[2023-06-26] MEDS: dexmedeTOMIDine in 0.9 % NaCL 400 MCG/100 ML PLAST..BAG 27.188 MCG IV (17:32)
--- NOTE | 2023-06-26 20:49 | PM.ICURNDS ---
- :: This patient was seen via real time interactive two-way audiovisual telecommunication. currently he remians onprecedex with and his agitation, / delirium is well controlled. he is having apneic spells followed by tachypenia which could be from a central apenic pattern and hortensia esparza. he may need an MRI to r/o any ishcemic damage, and evenmtually once his delirium is better controlled - cPAP qhs.
[2023-06-27] VITALS (36 sets, daily range): BP systolic 141–182; BP diastolic 85–103; PULSE 46–73; RESP 20–34; TEMP 36.2–37.3; O2SAT 92–99
[2023-06-27] MEDS: LORazepam 2 MG/ML INJ IV ×6 (02:09→23:53)
[2023-06-27] MEDS: dexmedeTOMIDine in 0.9 % NaCL 400 MCG/100 ML PLAST..BAG 27.188 MCG IV ×3 (02:59→19:08)
[2023-06-27] MEDS: HALOPERIDOL 5 MG/ML VIAL 2 MG IV (04:18)
--- NOTE | 2023-06-27 04:42 | PC.NURSE ---
Addendum entered by Ludmila Johnson R.N. 06/27/23 06:07: Patient has been incontinent large amounts of urine, linen changed and condom cath placed with 3-person assist, remains restless, but not as combative. Original Note: Line Up Examiner Note-Patient was resting from [id number], occasionally mumbling and gesturing as if talking to someone, speech inaudible. Precedex had been infusing at 1mcg/kg/hr, receiving Keppra Q12h as ordered, LR at 150ml/hr continues. SR, VSS, on 2L NC due apnea\tachypnea, snoring with occasional audible wheezes. At 2330, patient started to become increasingly restless and agitated, Ativan 2mg IV given per Q2hr prn, gave twice and Precedex increased to 1.5mcg-max dose. Patient continued to escalate with agitation and restlessness despite staff attempting to deescalate with reorientation and comfort measures, becoming aggressive. Patient only able to takes few sips of water and use urinal once with assist, otherwise he has been incontinent and unable to follow commands. 'Green Button' in room pushed to page Tele-Assistant Professor Of German, Dr Cee informed of patients mental status and current medications not effective, 2mg IV Haldol 1x order obtained and given. Patient continues to be restless and mumbles, but not attempting to pull at lines or get out of bed.
[2023-06-27] MEDS: levETIRAcetam 500 MG in SODIUM CHLORIDE 0.9% 100 ML 420 MG IV ×2 (08:09→19:22)
--- NOTE | 2023-06-27 08:24 | DI.RAD.S_ITS ---
PROCEDURE: XR CHEST 1V INDICATIONS: wheezing TECHNIQUE: One view of the chest was acquired. COMPARISON: [facility], , CHEST 1 VIEW, 11/02/2015, 17:57. [facility], , XR CHEST 1V, 06/25/2023, 15:34. FINDINGS: Surgical changes and devices: None. Lungs and pleura: Bilateral perihilar infiltrates. Right basilar atelectasis. Question trace right pleural effusion. No pleural effusions or pneumothorax. Mediastinum: Mediastinal contours appear normal. Heart size is mildly enlarged. Bones and chest wall: No suspicious bony lesions. Overlying soft tissues appear unremarkable. IMPRESSION: 1. Mild bilateral perihilar infiltrates suggesting mild CHF. Dictated by: Jhon Alcantar M.D. on 06/27/2023 at 13:25 Approved by: Jhon Alcantar M.D. on 06/27/2023 at 13:41
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
[2023-06-27] MEDS: PANTOPRAZOLE 40 MG VIAL IV (08:43)
[2023-06-27] MEDS: ENOXAPARIN 40 MG/0.4 ML SYRINGE SUBCUT (08:43)
[2023-06-27] MEDS: LACTATED RINGERS 1,000 ML 150 ML IV (08:44)
[2023-06-27 09:45] LABS: BUN Creatinine Ratio 22.4 (6-22); Blood Urea Nitrogen 13 mg/dL (9-20); Calcium 8.7 mg/dL (8.4-10.2); Carbon Dioxide 28 mmol/L (22-32); Chloride 102 mmol/L (98-107); Estimated Glomerular Filt Rate > 60 mL/min (>60); Glucose 95 mg/dL (70-100); HEMOLYSIS < 15 (0-50); Potassium 3.8 mmol/L (3.4-5.1); Sodium 135 mmol/L (137-145)
--- NOTE | 2023-06-27 09:49 | P.TELICUPN_ITS ---
Subjective Subjective IF CAMERA ACTIVATED, patient seen via real-time interactive audiovisual communication: Camera activated Consent obtained for tele-bow machine operator care: Yes Patient Location: ICU Provider location (State): [place] Other participants/roles: bedside nursing team Interval history: no acute events overnight lethargic but arousable Current Medications Current Medications Medications: Home Medications lamotrigine 200 mg tablet (Lamictal) 400 mg (2 x 200 mg) PO BID #120 tabs 10/07/19 [Rx Confirmed 03/02/23] levetiracetam 1,000 mg tablet (Keppra) 1,000 mg PO BID 10/07/19 [History Confirmed 03/02/23] mirtazapine 15 mg tablet 15 mg PO BEDTIME #30 tabs 10/01/20 [Rx Confirmed 03/02/23] quetiapine 50 mg tablet 150 mg (3 x 50 mg) PO HS #270 tabs 10/01/20 [Rx Confirmed 03/02/23] Visit Medications (administered) Generic Name Dose Route Start Last Admin Trade Name Freq PRN Reason Stop Dose Admin Enoxaparin Sodium 40 mg 06/26/23 09:00 06/27/23 08:43 Enoxaparin 40 Mg/0.4 Ml Syringe SUBCUT 40 mg DAILY LARISA Administration Lactated Ringer's 1,000 mls @ 80 mls/hr 06/25/23 21:00 06/27/23 08:44 Lactated Ringers IV 150 mls/hr CONT LARISA Administration Levetiracetam 500 mg/ Sodium 105 mls @ 420 mls/hr 06/26/23 07:45 06/27/23 08:24 Chloride IV Infused Q12H LARISA Infusion dexmedeTOMIDine in 0.9 % NaCL 400 mcg in 100 mls @ 3.625 mls/hr 06/26/23 09:45 06/27/23 09:30 Precedex IV 1 mcg/kg/hr TITRATE LARISA 18.125 mls/hr Titration Protocol 0.2 MCG/KG/HR Lorazepam 2 mg 06/26/23 17:15 06/27/23 06:28 Lorazepam 2 Mg/Ml Inj IV 2 mg Q2HR PRN Administration Agitation Pantoprazole Sodium 40 mg 06/26/23 09:00 06/27/23 08:43 Pantoprazole 40 Mg Vial IV 40 mg DAILY LARISA Administration Objective Ventilator Parameters: Ventilator Settings FiO2 30 RT Vent Frequency 18 Ventilator Tidal Volume 450 Exhaled Positive End Expiratory 5 Pressure Inspiratory Phase Time 0.91 I:E Ratio 1:2.7 Patient Position HOB >= 30 degrees Labs 06/25/23 21:30 06/27/23 08:29 Labs: Laboratory Results - last 24 hr 06/26/23 06/27/23 15:55 08:29 Sodium 135 L Potassium 4.1 3.8 Chloride 102 Carbon Dioxide 28 BUN 13 Creatinine 0.58 L Estimated GFR > 60 BUN/Creatinine Ratio 22.4 H Glucose 95 Calcium 8.7 Exam Vital Signs (past 8 hours): - 06/27/23 02:00 06/27/23 03:00 06/27/23 04:00 Temperature Pulse Rate 73 64 Respiratory Rate 28 H 29 H Blood Pressure Pulse Oximetry 94 92 Oxygen Delivery Method Room Air Oxygen Flow Rate 06/27/23 04:00 06/27/23 04:00 06/27/23 05:00 Temperature 98.0 F Pulse Rate 66 66 61 Respiratory Rate 28 H 34 H 30 H Blood Pressure Pulse Oximetry 93 93 93 Oxygen Delivery Method Oxygen Flow Rate 0 06/27/23 06:00 06/27/23 07:00 06/27/23 07:30 Temperature Pulse Rate 56 L 63 61 Respiratory Rate 28 H 25 H 25 H Blood Pressure Pulse Oximetry 93 95 95 Oxygen Delivery Method Oxygen Flow Rate 2 06/27/23 08:00 06/27/23 08:00 06/27/23 08:00 Temperature 98.2 F Pulse Rate 56 L 57 L Respiratory Rate 22 23 Blood Pressure Pulse Oximetry 94 94 Oxygen Delivery Method Room Air Oxygen Flow Rate 2 06/27/23 08:34 06/27/23 08:34 06/27/23 09:00 Temperature Pulse Rate 52 L 61 Respiratory Rate 24 Blood Pressure 156/99 H 156/99 H Pulse Oximetry 95 96 Oxygen Delivery Method Oxygen Flow Rate 2 06/27/23 09:00 06/27/23 09:30 Temperature Pulse Rate 61 60 Respiratory Rate 24 24 Blood Pressure Pulse Oximetry 96 97 Oxygen Delivery Method Oxygen Flow Rate 2 Fraction of Inspired Oxygen 21 SaO2/FiO2 Ratio 452 Oxygen Delivery Method Room Air Oxygen Flow Rate 2 Assessment & Plan Assessment & Plan narrative: 52 year old male admitted to ICU with: Suicide Attempt acute resp failure Siezure AMS substance abuse encephalapathy currently afebrile, HD stable sedated with precedex, arousable but becomes combative and agitated Plan: -neurochecks/sizure precautions -keppra for AED -MRI when able -keep sat above 92% -minimize benzo/haldol use if possible -wean precedex -check echo -diet as tolerated, place NGT and start feeds if unable to swallow -monitor ins/outs -replace lytes prn -gi/dvt ppx -psych eval when mental status improves -please call eICU if condition change -discussed with bedside COMFORT STATION SUPERVISOR BUNDLE: # FEN: diet as tolerated # Glucose: BG goal 140-180 # Prophylaxis: Lovenox subq for DVT prophylaxis, PPI for stress ulcer prophylaxis # Lines/tubes: PIV, F # CODE STATUS: Full code # Disposition: Remains in ICU .
[2023-06-27 10:30] LABS: pH ABG 7.43 (7.35-7.45)
[2023-06-27 10:31] LABS: Allen Test for ABG Passed? Yes, Passed; Blood Gas Collection Site Left Radial; Fractionated Inspired Oxygen 21; HCO3 ABG 27 mmol/L (23-27); Oxygen Saturation ABG 94 % (95-100); PO2 ABG 68 mmHg (80-100); TCO2 ABG 28 mmol/L (23-27)
--- NOTE | 2023-06-27 10:44 | PC.NURSE ---
Addendum entered by Mary Ann Segura R.N. 06/27/23 18:36: 1815 Pt became very agitated, attempting to jump out of bed, requiring 2 people to assist in calming pt down, administered 2mg Ativan as ordered, will continue to attempt to de-escalate this behavior. No further needs at this time Addendum entered by Mary Ann Segura R.N. 06/27/23 16:46: 1630 Pt became very agitated, calling out bathroom and attempting to get out of bed, educated pt on the condom catheter he had on, pt able to urinate, remained agitated so increased the precedex gtt 1.5mcg/kg/hr, administered ativan 2mg as ordered for agitation. No further needs at this time Original Note: Day shift note: Pt resting, with occasional twitching, mumbling, and gesturing, speech is inaudible, with occasional audible words. Precedex infusing at 1.5 mcg/kg/hr (will continue to titrate per protocol), received Keppra as ordered, LR @ 150mL/hr (titrated to 80mL per provider order). VSS, telemetry in NSR, 2L NC due to FARIDEH (undiagnosed) snoring with mouth open with audible upper airway wheezes. Condom catheter in place, Q2H turns, family update by phone and at bedside. Dr Kraft at bedside for rounds, updated on status. Pt continues to twitch and move all extremities, but goes back to sleep. 1:1 at bedside for close monitoring per suicidal protocol. No further needs at this time.
[2023-06-27] MEDS: dexmedeTOMIDine in 0.9 % NaCL 400 MCG/100 ML PLAST..BAG 21.75 MCG IV ×2 (10:52→15:38)
--- NOTE | 2023-06-27 13:33 | CM.DPC ---
DCP Cont: Per MD and ICU Teleintensivist, pt continues to be able to maintain his airways off vent but still requiring some sedation for agitation and confusion and not able to safely follow commands. Per MD, yesterday post extubation pt had moments of orientation and alertness and expressed that his overdose was intentional suicide attempt but today pt is not medically cleared or appropriate for MH assessment at this time. Family has been bedside at times throughout the day but pt not able to participate in discussion or assessment and not appropriate for goal directed discussion today. Plan: SW to follow closely tomorrow to determine if pt medically cleared and appropriate for bedside MH assessment towards determining safe discharge plan likely involving Voluntary vs Involuntary Dual Dx Inpt tx. Leandra Dent MSW
--- NOTE | 2023-06-27 20:34 | PM.ICURNDS ---
- Date Patient Seen: 06/27/23 Time Patient Seen: 20:35 :: This patient was seen via real time interactive two-way audiovisual telecommunication. Note: no acue events overnight remains combative and agitated when awake requiring ativan prn pushes currently on 1.5 precedex. suggest -ivf -minimize sedation -ngt for feeds -can start seroquel if able to swallow -please call eICU if condition changes
[2023-06-27] MEDS: LACTATED RINGERS 1,000 ML 80 ML IV (20:43)
[2023-06-27] MEDS: dexmedeTOMIDine in 0.9 % NaCL 400 MCG/100 ML PLAST..BAG 18.125 MCG IV (23:19)
[2023-06-28] VITALS (48 sets, daily range): BP systolic 129–185; BP diastolic 84–109; PULSE 47–104; RESP 19–32; TEMP 36.6–38.4; O2SAT 91–98
[2023-06-28] MEDS: dexmedeTOMIDine in 0.9 % NaCL 400 MCG/100 ML PLAST..BAG 23.563 MCG IV ×2 (03:35→07:44)
[2023-06-28 04:10] LABS: HCO3 VBG 29 mmol/L (24-28); PCO2 VBG 45.5 mmHg (45-50); PO2 VBG 46 mmHg (35-45); pH VBG 7.41 (7.33-7.43)
[2023-06-28 04:11] LABS: Fractionated Inspired Oxygen 28; Oxygen Saturation VBG 81 % (70-75); Total CO2 VBG 30 mmol/L (24-29)
[2023-06-28] MEDS: LORazepam 2 MG/ML INJ IV ×3 (04:53→10:41)
--- NOTE | 2023-06-28 05:00 | PC.NURSE ---
Patient slept on and off throughout the night, agitated when awake, tried to get OOB several times, Ativan IVP given for agitation. Precedex infusing at 1.3 mcg/kg/hr, LR at 80 ml/hr.
[2023-06-28 05:17] LABS: Add Manual Diff / Slide Review NO; Basophils Absolute Auto 200 /uL (0-100); Basophils Percent Auto 1.2 % (0-2); Eosinophils Absolute Auto 300 /uL (0-450); Eosinophils Percent Auto 1.9 % (2-4); Hematocrit 39.9 % (41-53); Hemoglobin 13.6 g/dL (13.5-17.5); Lymphocytes Absolute Auto 1500 /uL (1100-4500); Lymphocytes Percent Auto 10.9 % (25-40); Mean Corpuscular Hemoglobin 28.6 PG (26-34); Mean Corpuscular Volume 84.4 fL (80-100); Monocytes Absolute Auto 1100 /uL (0-900); Monocytes Percent Auto 7.6 % (3-14); Neutrophils Absolute Auto 10900 /uL (1500-7000); Neutrophils Percent Auto 78.4 % (50-75); Platelet Count 255 X10^3/uL (150-400); Red Blood Cell Count 4.73 X10^6/uL (4.5-5.9); Red Cell Distribution Width 13.4 % (11.6-14.8); White Blood Cell Count 13.9 X10^3/uL (4.5-11.0)
[2023-06-28 05:33] LABS: BUN Creatinine Ratio 25.4 (6-22); Blood Urea Nitrogen 16 mg/dL (9-20); Calcium 8.9 mg/dL (8.4-10.2); Carbon Dioxide 27 mmol/L (22-32); Chloride 101 mmol/L (98-107); Estimated Glomerular Filt Rate > 60 mL/min (>60); Glucose 93 mg/dL (70-100); HEMOLYSIS < 15 (0-50); Potassium 3.7 mmol/L (3.4-5.1); Sodium 136 mmol/L (137-145)
[2023-06-28] MEDS: levETIRAcetam 500 MG in SODIUM CHLORIDE 0.9% 100 ML 420 MG IV ×2 (07:44→19:28)
[2023-06-28] MEDS: PANTOPRAZOLE 40 MG VIAL IV (08:18)
[2023-06-28] MEDS: ENOXAPARIN 40 MG/0.4 ML SYRINGE SUBCUT (08:19)
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
[2023-06-28] MEDS: LACTATED RINGERS 1,000 ML 80 ML IV (09:30)
--- NOTE | 2023-06-28 09:49 | P.TELICUPN_ITS ---
Subjective Subjective IF CAMERA ACTIVATED, patient seen via real-time interactive audiovisual communication: Camera activated Consent obtained for tele-global marketing operations manager care: Yes Patient Location: ICU Provider location (State): [place] Other participants/roles: bedside nursing team Interval history: no acute events overnight remains agiated and combative intermittently Current Medications Current Medications Medications: Home Medications lamotrigine 200 mg tablet (Lamictal) 400 mg (2 x 200 mg) PO BID #120 tabs 10/07/19 [Rx Confirmed 03/02/23] levetiracetam 1,000 mg tablet (Keppra) 1,000 mg PO BID 10/07/19 [History Confirmed 03/02/23] mirtazapine 15 mg tablet 15 mg PO BEDTIME #30 tabs 10/01/20 [Rx Confirmed 03/02/23] quetiapine 50 mg tablet 150 mg (3 x 50 mg) PO HS #270 tabs 10/01/20 [Rx Confirmed 03/02/23] Visit Medications (administered) Generic Name Dose Route Start Last Admin Trade Name Freq PRN Reason Stop Dose Admin Enoxaparin Sodium 40 mg 06/26/23 09:00 06/28/23 08:19 Enoxaparin 40 Mg/0.4 Ml Syringe SUBCUT 40 mg DAILY LARISA Administration Lactated Ringer's 1,000 mls @ 80 mls/hr 06/25/23 21:00 06/28/23 09:30 Lactated Ringers IV 80 mls/hr CONT LARISA Administration Levetiracetam 500 mg/ Sodium 105 mls @ 420 mls/hr 06/26/23 07:45 06/28/23 07:59 Chloride IV Infused Q12H LARISA Infusion dexmedeTOMIDine in 0.9 % NaCL 400 mcg in 100 mls @ 3.625 mls/hr 06/26/23 09:45 06/28/23 09:20 Precedex IV 1.2 mcg/kg/hr TITRATE LARISA 21.75 mls/hr Titration Protocol 0.2 MCG/KG/HR Lorazepam 2 mg 06/26/23 17:15 06/28/23 07:29 Lorazepam 2 Mg/Ml Inj IV 2 mg Q2HR PRN Administration Agitation Pantoprazole Sodium 40 mg 06/26/23 09:00 06/28/23 08:18 Pantoprazole 40 Mg Vial IV 40 mg DAILY LARISA Administration Objective Ventilator Parameters: Ventilator Settings FiO2 30 RT Vent Frequency 18 Ventilator Tidal Volume 450 Exhaled Positive End Expiratory 5 Pressure Inspiratory Phase Time 0.91 I:E Ratio 1:2.7 Patient Position HOB >= 30 degrees Labs 06/28/23 04:30 06/28/23 04:30 Labs: Laboratory Results - last 24 hr 06/27/23 06/27/23 06/28/23 10:17 23:03 04:30 WBC 13.9 H RBC 4.73 Hgb 13.6 Hct 39.9 L MCV 84.4 MCH 28.6 MCHC 34.0 RDW 13.4 Plt Count 255 Neut % (Auto) 78.4 H Lymph % (Auto) 10.9 L [place] % (Auto) 7.6 Eos % (Auto) 1.9 L Baso % (Auto) 1.2 Neut # (Auto) 30299 H Lymph # (Auto) 1500 [place] # (Auto) 1100 H Eos # (Auto) 300 Baso # (Auto) 200 H ABG Sample Site Left radial ABG pH 7.43 ABG pCO2 41.0 ABG pO2 68 L ABG HCO3 27 ABG Total CO2 28 H ABG O2 Saturation 94 L ABG Base Excess 3.0 VBG pH 7.41 VBG pCO2 45.5 VBG pO2 46 H VBG HCO3 29 H VBG Total CO2 30 H VBG O2 Saturation 81 H VBG Base Excess 4.0 FiO2 21 28 Sodium 136 L Potassium 3.7 Chloride 101 Carbon Dioxide 27 BUN 16 Creatinine 0.63 L Estimated GFR > 60 BUN/Creatinine Ratio 25.4 H Glucose 93 Calcium 8.9 Exam Vital Signs (past 8 hours): - 06/28/23 02:00 06/28/23 03:00 06/28/23 04:00 Temperature Pulse Rate 55 L 55 L Respiratory Rate 21 20 Blood Pressure Pulse Oximetry 96 96 Oxygen Delivery Method Nasal Cannula Oxygen Flow Rate 06/28/23 04:00 06/28/23 04:00 06/28/23 04:16 Temperature 98 F Pulse Rate 59 L 69 Respiratory Rate 26 H 26 H Blood Pressure 129/86 129/86 Pulse Oximetry 97 95 Oxygen Delivery Method Oxygen Flow Rate 2 06/28/23 04:16 06/28/23 05:00 06/28/23 06:00 Temperature Pulse Rate 61 52 L 51 L Respiratory Rate 22 26 H 25 H Blood Pressure Pulse Oximetry 94 93 95 Oxygen Delivery Method Oxygen Flow Rate 06/28/23 07:00 06/28/23 07:27 06/28/23 07:27 Temperature Pulse Rate 56 L 75 Respiratory Rate 21 20 Blood Pressure 146/85 H Pulse Oximetry 93 94 Oxygen Delivery Method Oxygen Flow Rate 06/28/23 07:28 06/28/23 08:00 Temperature 98.2 F Pulse Rate Respiratory Rate Blood Pressure Pulse Oximetry Oxygen Delivery Method Nasal Cannula Oxygen Flow Rate Fraction of Inspired Oxygen 21 SaO2/FiO2 Ratio 452 Oxygen Delivery Method Nasal Cannula Oxygen Flow Rate 2 Assessment & Plan Assessment & Plan narrative: 52 year old male admitted to ICU with: Suicide Attempt acute resp failure Siezure AMS substance abuse encephalapathy currently afebrile, HD stable still on precedex Plan: -neurochecks/seizure precautions -keppra for AED -suggest MRI head -check ekg for qtc -start seroquel 50mg bid -wean precedex -keep sat above 92% -suggest NGT and tube feeds if possible -dc ivf -monitor ins/outs -replace lytes prn -gi/dvt ppx -psych eval when mental status improves -please call eICU if condition change -discussed with bedside PONY RIDE ATTENDANT BUNDLE: # FEN: diet as tolerated # Glucose: BG goal 140-180 # Prophylaxis: Lovenox subq for DVT prophylaxis, PPI for stress ulcer prophylaxis # Lines/tubes: PIV, F # CODE STATUS: Full code # Disposition: Remains in ICU .
[2023-06-28] MEDS: QUETIAPINE 25 MG TABLET 50 MG PO ×2 (09:58→20:00)
[2023-06-28] MEDS: dexmedeTOMIDine in 0.9 % NaCL 400 MCG/100 ML PLAST..BAG 10.875 MCG IV (12:57)
--- NOTE | 2023-06-28 13:18 | PC.NURSE ---
Day shift note: Pt goes through periods of lucidity, then returns to either sleep or agitation, able to eat applesauce, yogurt, and lunch when fed. Able to drink fluids from cup with straw with assistance. Was able to take 50mg of seraquil in applesauce with no difficulty. Titrating precedex down as pt tolerates, see emar for titration, goal is to be able to turn off precedex and manage agitation with seraquil and IVP ativan. Pt able to recognize family members and for the most part re-directable, without pt becoming aggressive. No further needs at this time
[2023-06-28] MEDS: ACETAMINOPHEN 325 MG TABLET 650 MG PO (17:41)
[2023-06-28] MEDS: cefTRIAXone 2,000 MG in SODIUM CHLORIDE 0.9% 100 ML 200 MG IV (18:05)
--- NOTE | 2023-06-28 19:06 | PC.NURSE ---
Around 1530, RN noticed that R AC IV site had erythema in small circular area surrounding IV insertion site. Pt denied pain when RN palpated the site. RN further assessed the IV site, which flushed easily, but RN removed the IV for safety. RN placed ice on the site and reported the site to RN coordinator for further assessment. RN passed this on to freelance digital project manager. Around 1730 PCT reported to RN that the oral and temporal temperatures were not correlating. Oral was around 98F and temporal was around 100-101F. RN took 3 axillary temperatures which were relatively consistent and the highest was 101.1. Rn reported this, along with the elevated WBC on AM lab to provider. RN administered tylenol and placed ice packs in pt's arm pits and neck. RN reassessed pt fever which came down to 100.1 axillary and reported these actions and assessments to freelance digital project manager RN. Provider ordered antibiotics which RN started after BC drawn. Throughout afternoon, pt responding to commands inconsistently but able to respond to some commands. Pt able to communicate most basic needs. Oriented to person and birthdate. Recognizing family members.
[2023-06-28] MEDS: PIPERACILLIN/TAZO 3.375 GM in SODIUM CHLORIDE 0.9% 100 ML IV (19:21)
--- NOTE | 2023-06-28 20:33 | PM.ICURNDS ---
- :: This patient was seen via real time interactive two-way audiovisual telecommunication. Note: much improved today. started on seroquel now off of precedex alert awake following commands dc ivf diet as tolerated continue icu care
[2023-06-29] VITALS (15 sets, daily range): BP systolic 144–165; BP diastolic 85–97; PULSE 65–94; RESP 21–40; TEMP 36.9–37.1; O2SAT 95–96
[2023-06-29] MEDS: PIPERACILLIN/TAZO 3.375 GM in SODIUM CHLORIDE 0.9% 100 ML IV (02:02)
[2023-06-29] MEDS: LORazepam 2 MG/ML INJ IV (03:30)
--- NOTE | 2023-06-29 03:35 | PC.NURSE ---
Patient increasingly getting frustrated for not being able to sleep, agitated, Ativan given per order.
[2023-06-29 06:18] LABS: Lamotrigine Lamictal 8.4 ug/mL (2.0-20.0)
[2023-06-29] MEDS: levETIRAcetam 500 MG in SODIUM CHLORIDE 0.9% 100 ML 420 MG IV (07:27)
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
[2023-06-29] MEDS: QUETIAPINE 25 MG TABLET 50 MG PO (08:59)
[2023-06-29] MEDS: lamoTRIgine 100 MG TABLET 400 MG PO ×2 (08:59→20:24)
[2023-06-29] MEDS: ENOXAPARIN 40 MG/0.4 ML SYRINGE SUBCUT (08:59)
--- NOTE | 2023-06-29 09:50 | PT.IIE ---
Current Diagnoses Encephalopathy, unspecified (06/25/23) Acute respiratory failure, unspecified whether with hypoxia or hypercapnia (06/25/23) Poisoning by unspecified drugs, medicaments and biological substances, accidental (unintentional), initial encounter (06/25/23) Surgical History (Last Reviewed 10/06/20 @ 13:13 by Nneka Vernon PA-C) H/O knee surgery Medical History (Last Reviewed 06/25/23 @ 18:32 by Naseem Dolan DO) Bipolar I disorder Jaw fracture Primary insomnia (04/15/14) Seizure disorder Traumatic brain injury Physical Therapy Inpatient Evaluation/Re-Eval M1 PT/OT-IP Prior Functional Status Start: 06/29/23 10:03 Freq: NEEDED Status: Active Protocol: Document 06/29/23 09:50 NM (Rec: 06/29/23 10:17 NM [id number]) Medical Review Prior Functional Status Medical History Reviewed Yes Mobility and Gait IND without AD. Family reports that pt's balance has recently been worsening Activities of Daily Living and IADL's IND Social History Household Members none Living Arrangements Homeless Employment Status Unemployed Additional Social History Comment Family reports pt lives in his car M2 PT-IP Current Condition Start: 06/29/23 10:03 Freq: NEEDED Status: Active Protocol: Document 06/29/23 09:50 NM (Rec: 06/29/23 10:17 NM [id number]) Physical Therapy Current Condition Current Condition Evaluation Date 06/29/23 Treatment Diagnosis AMS, balance and gait abnormalities s/p drug overdose Onset Date 06/25/23 M3 PT-IP Subjective Start: 06/29/23 10:03 Freq: NEEDED Status: Active Protocol: Document 06/29/23 09:50 NM (Rec: 06/29/23 10:17 NM [id number]) Subjective Physical Therapy Visit Type Type Initial Evaluation Visit Start Time 09:10 Visit Stop Time 09:50 Notes seizure precautions Physical Therapy Visit Comments Patient Comments Pt supine with HOB elevated with bed alarm activated. Agrees to participate in PT evaluation. Pt's cousin and CORAZON present, helped provide pt hx. Cousin and CORAZON report that pt has been complaining of low back recently, but pt currently denies pain Therapy Pain Assessment Pain Present Pain Present Denied Pain M4 PT-IP Mobility and Gait Start: 06/29/23 10:03 Freq: NEEDED Status: Active Protocol: Document 06/29/23 09:50 NM (Rec: 06/29/23 10:17 NM [id number]) PT-Bed Mobility Assessment Rolling Type of Rolling Bilateral Level of Assist Standby Assistance Supine to Sit Supine to Sit Contact Guard Assistance Sit to Supine Sit to Supine Standby Assistance Scooting Scooting to Edge of Bed Standby Assistance Scooting Up and Down in Bed Independent PT-Transfer Assessment Sit to and From Stand Sit to and from Stand Contact Guard Assistance Equipment Transfer Assistive Device Gait Belt Transfers Transfer Destination Bed,Toilet Transfer Technique Stand Step Pivot Transfer Ability Level of Assist Minimal Assistance,1 Person Assistance Comments Mobility Comments Pt is SBA for bed mobility due to safety, decreased awareness of EOB. Able to reposition independently. Closed SBA for safety with cues related to EOB awareness, CGA for STS without FWW. Pt is impulsive and requires moderate cues for safety. PT recommended use of FWW to pt for stability but pt refused to place hands on FWW or use. Gait Assessment Gait Gait Assistance Required: Minimum Assistance,1 Person Assist Distance (Feet) 30 Able to Maintain Weight Bearing Status Yes During Gait Assistive Devices Assistive Device Gait Belt Gait Deviations General Gait Pattern Decreased Feet Clearance, Flexed Trunk,Step-to Gait Factors Limiting Gait Function Factors Limiting Gait Function Difficulty Following Directions,Incoordination,Poor Balance,Poor Safety Awareness Comments Gait Comments Pt ambulated with min A for balance using gait belt without FWW from bed to sink x5 ft, standing x2 min, then toilet x10 ft. Demos decreased foot clearance, increased lateral and flexed trunk sway. CGA at toilet for balance and safety x3 min, pt using L hand for stability on wall in front of toilet. Then pt ambulated x10 ft min A to sink , standing x3 min with min A to stabilize at sink washing hands. Requires increased time . Ambulated x5 ft with min A to bed. CGA for eccentric lowering to EOB, immediately transferred from sitting > supine with close SBA due to poor awareness of surroundings . Pt closed eyes and began to sleep once in bed. Left supine in bed with call light within reach, bed alarm activated, RN alerted. Stair Climbing Assessment Comments Stair Climbing Comments Pt unsafe to attempt PT-Balance Assessment Sitting Balance and Reactions Static Sitting Balance Ability Fair Dynamic Sitting Balance Ability Fair Standing Balance and Reactions Static Standing Balance Ability Poor Dynamic Standing Balance Ability Poor Functional Assessments Functional Tests Tinetti Balance and Gait Assessment 11/16 M5 PT-IP Objective Assessments Start: 06/29/23 10:03 Freq: NEEDED Status: Active Protocol: Document 06/29/23 09:50 NM (Rec: 06/29/23 10:17 NM [id number]) Orientation Orientation/Cognition Level of Alertness Confusional State Orientation Name,Birthday,Place,Situation Language Function Ability Garbled Speech Safety Awareness Decreased Safety Awareness Gross Range of Motion Upper Extremity ROM Assessment Within Functional Limits Lower Extremity ROM Assessment Within Functional Limits Strength Upper Extremity Strength Assessment Within Functional Limits Lower Extremity Strength Hip 4/5 flex, ext, abd Knee 4/5 flex, ext Ankle 4/5 dorsiflex/plantarflex Comments Strength Comments Difficulty following directions Other Assessments Other Other Assessments vitals: 156/96 mmHg, 94 bpm, 100% spO2 on room air M6 PT-IP Treatment Start: 06/29/23 10:03 Freq: NEEDED Status: Active Protocol: Document 06/29/23 09:50 NM (Rec: 06/29/23 10:17 NM [id number]) Physical Therapy Treatment Education Education Provided Safety M7 PT-IP Assessment and Plan Start: 06/29/23 10:03 Freq: NEEDED Status: Active Protocol: Document 06/29/23 09:50 NM (Rec: 06/29/23 10:17 NM [id number]) PT Summary Assessment and Plan Potential Rehabilitation Potential Fair Status of Condition at Evaluation Evolving Summary Impairments Strength,Balance,Coordination, Cognition,Bed Mobility, Transfers,Gait,Activity Tolerance Assessment Summary Pt presents with balance and gait abnormalities s/p AMS and drug overdose. Pt is SBA for bed mobility due to safety, CGA to steady for STS and transfers, and min Ax1 for gait x30 ft due to decreased foot clearance, poor balance, and increased trunk sway. Pt is impulsive with poor balance and awareness of surroundings , requiring moderate cues for safety. He demos difficulty with following directions except brief instructions. Family reports that balance has recently been worsening. Pt would likely benefit from temporary AD use for stability ; however, he declined to attempt mobilizing using FWW. PT recommending home with assistance vs SNF for additional support due to impulsivity and decreased safety awareness during mobility. Goals Bed Mobility Goal Independent Transfer Goal Independent Gait Goal Independent Gait Distance 50 ft Other Goals IND for gait and transfers without AD Days to Meet Goals 10 Frequency of Treatment Frequency Of Treatment Twice a Day Treatment Plan Physical Therapy Treatment Plan Bed Mobility Training,Transfer Training,Gait Training, Therapeutic Exercise,Balance Retraining,Discharge Planning, Hot or Cold Pack Other Recommendations and Next Treatment Gait training without AD Focus Recommendations To Nursing Amount of Assist Needed 1 Person Assist Discharge Recommendations PT Discharge Recommendations Home with Assistance,Home vs SNF Other Discharge Recommendations Depending on pt progression, PT recommending home with assistance vs SNF. However, family reports that they are unable to assist him after discharge. Transportation Needs at Discharge Private Vehicle
--- NOTE | 2023-06-29 12:52 | CM.DANOTE ---
BIOINFORMATICS ANALYST Note According to BETTE Reese, patient much more alert this morning and able to participate in conversation. Met w/patient who gave permission to sister in law Ana and cousin Sara to stay for this visit. introduced self and role. Patient appears sleepy, does not make good eye contact. Patient's speech is slurred and patient is mumbling. Patient does not seem to be tracking questions and conversation; most answers are not appropriate for the questions asked. Patient could not remember thoughts or events leading up to his OD. Explained to patient and family that now is not a good time for further conversation and patient agreed, explained to family that patient is not likely to retain information discussed. Spoke w/family outside of patient's room and provided copies of blank affidavits; explained that anyone in patient's life that is concerned about his safety can complete an affidavit summarizing their concerns. Affidavits can be used in a court of law to build a case for a detainment to psychiatric care. Family states understanding. Discussed detainment vs voluntary inpatient placement. Family expresses great concern about patient. Family feels patient is vulnerable to exploitation because of his hx of TBI, mental illness and substance use. Family reports that patient had been sober 14 years, during which time he was able to work for the [employer] business and maintain stability. This was interrupted by the loss of patient's aunt and parents; which appeared to cause patient's decline. According to family report, patient does not have access to weapons although often has his medications stockpiled in his car. Family recalls that before this overdose, patient had been acting erratically, appeared high, and was threatening suicide; which patient had done numerous times before. Family hopeful patient has a treatment option as multiple family members have been brainstorming how to get patient back to sobriety and stability. Plan: SW team will continue to follow closely. At this time, recommending DCR involvement when patient is considered medically cleared. Anticipated barriers to placement into inpatient psychiatric care- Hx TBI, seizure disorder Updated BETTE Reese and provider. SY Smith BIOINFORMATICS ANALYST - Pest Control Service Representative Assessment Start: 06/29/23 11:16 Freq: Status: Active Protocol: Document 06/29/23 11:16 CHARLENE (Rec: 06/29/23 11:52 CHARLENE [id number]) BIOINFORMATICS ANALYST/Pest Control Service Representative Assessment Presenting Problem 52 yo M, PMH includes bipolar disorder, seizure disorder secondary to hx TBI, and substance abuse, found in his car at [employer], unresponsive, intubated in the field and brought into the ER . Toxicology positive for Meth, Amphetamines, Cocaine. Patient denies drug use this visit. Precipitating Event(s) Hx obtained from family; Downward spiral since the of his aunt, mother and father over the last 2 years. Housing instability, drug use, toxic relationships and unstructured days. 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 # Psych. Hx Mental Health and Chemical Hx of suicide thoughts and Dependency threats, family unaware of any other suicide attempts. Inpatient [facility] stay at [facility] in [place], voluntary stay, did not have a full treatment stay. Family Hx of Behavioral Abuse Did not assess Psychiatric Hospitalizations (date(s)/ None reported location) Psychosocial information & Support Housing instability for at Systems least a year, currently living in his girlfriend's car. Patient has numerous family members trying to look out for him. School/Work Currently unemployed, disability benefits (?) Family reports patient is only on SSI, although patient has [employer] [facility], likely also has disability benefits- SSD Legal Matters - Outstanding Issues Patient was released from alf a week ago and was there for 2 weeks. Family reports patient has a parole office and social service manager assigned through the formerly [facility]'s office. Suicidal Ideation (Plan) Yes: Recent attempt, unable to assess current SI this visit Homicidal Ideation (Plan) Unable to assess this visit Intervention Current risk assessment is based on history provided from family; patient is considered at high risk to attempt suicide again; impulsive, poor insight, TBI w/ dx of Bipolar I Disorder possibly exacerbated by complicated grief syndrome, and substance use. RA Plan This BIOINFORMATICS ANALYST recommends call to [employer] if patient leaves AMA, if patient is not agreeable to considering inpatient psychiatric stay, patient would benefit from an evaluation by DCR once medically stable.
--- NOTE | 2023-06-29 13:16 | PT.IPTN ---
Current Diagnoses Encephalopathy, unspecified (06/25/23) Acute respiratory failure, unspecified whether with hypoxia or hypercapnia (06/25/23) Poisoning by unspecified drugs, medicaments and biological substances, accidental (unintentional), initial encounter (06/25/23) Physical Therapy Treatment Note M2 PT-IP Current Condition Start: 06/29/23 10:03 Freq: NEEDED Status: Active Protocol: Document 06/29/23 09:50 NM (Rec: 06/29/23 10:17 NM [id number]) Physical Therapy Current Condition Current Condition Evaluation Date 06/29/23 Treatment Diagnosis AMS, balance and gait abnormalities s/p drug overdose Onset Date 06/25/23 M3 PT-IP Subjective Start: 06/29/23 10:03 Freq: NEEDED Status: Active Protocol: Document 06/29/23 13:26 ZF (Rec: 06/29/23 13:41 ZF [id number]) Subjective Physical Therapy Visit Type Type Treatment Note Visit Start Time 13:16 Visit Stop Time 13:25 Notes seizure precautions Physical Therapy Visit Comments Patient Comments Attempted to see pt right after lunch, in the shower, returned later and Pt just returned to bed after shower, agreeable to therapy. Therapy Pain Assessment Pain Present Pain Present Denied Pain M4 PT-IP Mobility and Gait Start: 06/29/23 10:03 Freq: NEEDED Status: Active Protocol: Document 06/29/23 13:26 ZF (Rec: 06/29/23 13:41 ZF [id number]) PT-Bed Mobility Assessment Supine to Sit Supine to Sit Standby Assistance Sit to Supine Sit to Supine Standby Assistance PT-Transfer Assessment Sit to and From Stand Sit to and from Stand Contact Guard Assistance Equipment Transfer Assistive Device Gait Belt Transfers Transfer Destination Bed Transfer Technique Stand Step Pivot Transfer Ability Level of Assist Minimal Assistance,1 Person Assistance Comments Mobility Comments Supie>Sitting EOB requires SBA . STS from EOB w/o AD requires CGA. Pt amb in room initially w/o AD Kaden due to postural sway, stumbling (which he attributes to the yard coordinator socks he's wearing- pt cued for improved foot clearance) and LEs crossing during amb. Pt encouraged to use FWW for safety, he agrees as he reports he feels wobbly. Pt continues to amb for total ~40 ' in room, Kaden, bumping into things, and talking incessantly about the home he grew up in. Pt abruptly reports that he doesn't want to walk any more, youngblood the AD against the wall and then lurches toward the bed, requires ModA to reach bed safely. Pt lies down and falls asleep instantly. Pt is very impulsive, does not follow cueing, lacks safety awareness and awarenss of his surroundings. Nursing notified , bed alarm activated. Gait Assessment Gait Gait Assistance Required: Minimum Assistance,1 Person Assist Distance (Feet) 40 Able to Maintain Weight Bearing Status Yes During Gait Assistive Devices Assistive Device Gait Belt,Front Wheeled Walker Gait Deviations General Gait Pattern Decreased Feet Clearance, Flexed Trunk,Step-to Gait Factors Limiting Gait Function Factors Limiting Gait Function Difficulty Following Directions,Incoordination,Poor Balance,Poor Safety Awareness Comments Gait Comments See mobility comments. Stair Climbing Assessment Comments Stair Climbing Comments Pt unsafe to attempt PT-Balance Assessment Sitting Balance and Reactions Static Sitting Balance Ability Fair Dynamic Sitting Balance Ability Fair Standing Balance and Reactions Static Standing Balance Ability Poor Dynamic Standing Balance Ability Poor M5 PT-IP Objective Assessments Start: 06/29/23 10:03 Freq: NEEDED Status: Active Protocol: Document 06/29/23 09:50 NM (Rec: 06/29/23 10:17 NM [id number]) Orientation Orientation/Cognition Level of Alertness Confusional State Orientation Name,Birthday,Place,Situation Language Function Ability Garbled Speech Safety Awareness Decreased Safety Awareness Gross Range of Motion Upper Extremity ROM Assessment Within Functional Limits Lower Extremity ROM Assessment Within Functional Limits Strength Upper Extremity Strength Assessment Within Functional Limits Lower Extremity Strength Hip 4/5 flex, ext, abd Knee 4/5 flex, ext Ankle 4/5 dorsiflex/plantarflex Comments Strength Comments Difficulty following directions Other Assessments Other Other Assessments vitals: 156/96 mmHg, 94 bpm, 100% spO2 on room air M6 PT-IP Treatment Start: 06/29/23 10:03 Freq: NEEDED Status: Active Protocol: Document 06/29/23 13:26 ZF (Rec: 06/29/23 13:41 [id number]) Physical Therapy Treatment Education Education Provided Safety M7 PT-IP Assessment and Plan Start: 06/29/23 10:03 Freq: NEEDED Status: Active Protocol: Document 06/29/23 13:26 ZF (Rec: 06/29/23 13:41 ZF [id number]) PT Summary Assessment and Plan Summary Assessment Summary Pt dems poor balance, poor safety awareness, impulsivity, poor awareness of surroundings. Pt does not follow cueing for safety. Pt initially refuses fww, but is very unsafe w/o it, requirs CGA-ModA for safety w/ functional mobility training. SBA for bed mobility. Goals Bed Mobility Goal Independent Transfer Goal Independent Gait Goal Independent Gait Distance 50 ft Other Goals IND for gait and transfers without AD Days to Meet Goals 10 Frequency of Treatment Frequency Of Treatment Twice a Day Treatment Plan Physical Therapy Treatment Plan Bed Mobility Training,Transfer Training,Gait Training, Therapeutic Exercise,Balance Retraining,Discharge Planning, Hot or Cold Pack Recommendations To Nursing Amount of Assist Needed 1 Person Assist Discharge Recommendations PT Discharge Recommendations Home with Assistance,Home vs SNF Transportation Needs at Discharge Private Vehicle,Wheelchair/ Cabulance
--- NOTE | 2023-06-29 13:20 | PC.NURSE ---
Addendum entered by Mary Ann Segura R.N. 06/29/23 13:27: Pt received shower, in shower chair as he is too unsteady to stand on his own, bedding changed, paper scrub pants on, back to bed and sleeping, no further needs Addendum entered by Mary Ann Segura R.N. 06/29/23 13:23: room cleared of phone and cords removed from reach, per protocol Original Note: Pt belongings locked in coordinators office per SI High Risk Protocol
[2023-06-29] MEDS: cefTRIAXone 2,000 MG in SODIUM CHLORIDE 0.9% 100 ML 200 MG IV (18:11)
[2023-06-29] MEDS: levETIRAcetam 250 MG TABLET 1000 MG PO (20:24)
[2023-06-29] MEDS: QUETIAPINE 100 MG TABLET 200 MG PO (20:24)
[2023-06-30] VITALS: PULSE 82; RESP 21; TEMP 36.9; O2SAT 96
--- NOTE | 2023-06-30 06:31 | PC.NURSE ---
Patient slept well most of the night, speech is clear, oriented x 4, on room air, good appetite, voiding per urinal, very high fall risk, unsteady on his feet, no complaints.
[2023-06-30 07:30] VITALS: TEMP 37.5
[2023-06-30 08:00] VITALS: BP 130/100; PULSE 102; RESP 18; O2SAT 94
[2023-06-30] MEDS: ENOXAPARIN 40 MG/0.4 ML SYRINGE SUBCUT (08:26)
--- NOTE | 2023-06-30 08:26 | P.PN_ITS ---
Subjective Subjective Date Patient Seen: 06/30/23 Time Patient Seen: 08:26 Interval history: Patient continues to improve frankly hour by hour. Seems more coherent. Still very weak and impulsive on his feet requiring great deal of assistance. TOUR CONSULTANT yesterday try to perform a thorough suicide screen/evaluation and it is very difficult to get a thorough evaluation at this time. Input from family suggested strongly patient is relatively high-risk for repeat suicide attempts. Also has of course the underlying traumatic brain injury and altered personality. Will likely benefit from continued mental health treatment as an outpatient when ready to go Vital signs have been okay. Mental status again not quite back to baseline but steadily improving Exam Vital Signs (past 8 hours): - 06/30/23 08:00 Pulse Rate 102 H Respiratory Rate 18 Blood Pressure 130/100 H Pulse Oximetry 94 Fraction of Inspired Oxygen 21 SaO2/FiO2 Ratio 452 Oxygen Delivery Method Room Air Oxygen Flow Rate 0 Objective Labs 06/28/23 04:30 06/28/23 04:30 [facility] Medical History (Updated 06/25/23 @ 21:06 by Aly Montanez MD) Jaw fracture Traumatic brain injury Primary insomnia (04/15/14) Seizure disorder Bipolar I disorder Surgical History H/O knee surgery Social History marital status: unmarried,single number of children: 0 household members: family lives independently: Yes caregiver/support person: No housing: house pets and animals: Yes education level: high school 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 Respiratory failure-now resolved. Completely off oxygen. No recurrent fever. Can likely switch to oral antibiotic therapy. 2. Altered mental status/metabolic encephalopathy-I do believe in retrospect now patient was most likely postictal as I have discussed previously. Despite would seem like him having returned close to baseline yesterday with him up on his feet being quite unstable unsteady etcetera I do not think he is quite back to baseline. But he does continue to improve on a day-by-day basis 3. Question suicide attempt-continued careful evaluation in this regard. professional services manager suggest may benefit from professional evaluation prior to discharge which I agree with. 4. Seizure disorder-back on his usual meds as far as we can tell. 5. Bipolar/insomnia-given his usual dose of 200 mg quetiapine last night. A bit somnolent this morning but seems to be doing okay 6. Weakness-patient will need some physical therapy to establish that he is safe on his own up out of bed etcetera. Quite unsteady unstable on his feet yesterday continue with physical therapy 7. Hypertension-patient's blood pressure has increased steadily. Will place him on antihypertensive therapy today as well. Overall patient continues to improve day by day. He needs ongoing physical therapy and will eventually I think needs some mental health support.
[2023-06-30] MEDS: lamoTRIgine 100 MG TABLET 400 MG PO ×2 (08:27→21:26)
[2023-06-30] MEDS: levETIRAcetam 250 MG TABLET 1000 MG PO ×2 (08:27→21:26)
[2023-06-30] MEDS: AMOXICILLIN/CLAV 500/125 MG 1 TAB PO ×2 (08:56→21:26)
[2023-06-30] MEDS: AMLODIPINE 5 MG TABLET PO (08:56)
--- NOTE | 2023-06-30 10:45 | PT.IPTN ---
Current Diagnoses Encephalopathy, unspecified (06/25/23) Acute respiratory failure, unspecified whether with hypoxia or hypercapnia (06/25/23) Poisoning by unspecified drugs, medicaments and biological substances, accidental (unintentional), initial encounter (06/25/23) Physical Therapy Treatment Note M2 PT-IP Current Condition Start: 06/29/23 10:03 Freq: NEEDED Status: Active Protocol: Document 06/29/23 09:50 NM (Rec: 06/29/23 10:17 NM [id number]) Physical Therapy Current Condition Current Condition Evaluation Date 06/29/23 Treatment Diagnosis AMS, balance and gait abnormalities s/p drug overdose Onset Date 06/25/23 M3 PT-IP Subjective Start: 06/29/23 10:03 Freq: NEEDED Status: Active Protocol: Document 06/30/23 10:45 AB (Rec: 06/30/23 13:19 AB [id number]) Subjective Physical Therapy Visit Type Type Treatment Note Visit Start Time 10:45 Visit Stop Time 11:05 Number of MARKET REPORTER Visits 0 Physical Therapy Visit Comments Patient Comments agreeable to do PT M4 PT-IP Mobility and Gait Start: 06/29/23 10:03 Freq: NEEDED Status: Active Protocol: Document 06/30/23 10:45 AB (Rec: 06/30/23 13:19 AB [id number]) PT-Bed Mobility Assessment Supine to Sit Supine to Sit Standby Assistance PT-Transfer Assessment Sit to and From Stand Sit to and from Stand Contact Guard Assistance,1 Person Assistance,Use of Upper Extremities Equipment Transfer Assistive Device None,Gait Belt Orthotic/Prosthetic Devices or Brace: No Transfers Transfer Destination Toilet Transfer Technique ambulated Transfer Ability Level of Assist Contact Guard Assistance,1 Person Assistance,Use of Upper Extremities Comments Mobility Comments pt supine in bed and agreeable to do PT. pt is impulsive. completed supine to sit SBA. able to sit on EOB SBA. pt requesting to use the toilet. completed sit to stand CGA and ambulated to the toilet using FWW CGA. pt is impulsive, decrease safety awareness and inconsistent with following directions. completed toileting CGA. pt ambulated to the sink using FWW CGA. pt not using FWW correctily despite instruction. pt completed handwashing and grooming by the sink SBA to CGA. pt ageed to do ambulation. completed without AD CGA. pt able to walk in the hallway ~ 250 ft without AD CGA. presents with unsteady gait with lateral LOB to the R requiring CGA for safety. pt ambulated back to his room. sat on the chair. pt wants to take a shower. nurse aware. informed pt that PT will decrease tx frequency to once a day and pt agreed. nurse staff should mobilize pt as much as possible. Gait Assessment Gait Gait Assistance Required: Contact Guard Assist,1 Person Assist Distance (Feet) 250 Able to Maintain Weight Bearing Status Yes During Gait Assistive Devices Assistive Device None,Gait Belt Orthotic/Prosthetic Devices or Brace: No Gait Deviations General Gait Pattern Antalgic,Decreased Stride Length,Decreased Feet Clearance Factors Limiting Gait Function Factors Limiting Gait Function Decreased Activity Tolerance, Decreased Strength,Poor Balance,Poor Safety Awareness M5 PT-IP Objective Assessments Start: 06/29/23 10:03 Freq: NEEDED Status: Active Protocol: Document 06/29/23 09:50 NM (Rec: 06/29/23 10:17 NM [id number]) Orientation Orientation/Cognition Level of Alertness Confusional State Orientation Name,Birthday,Place,Situation Language Function Ability Garbled Speech Safety Awareness Decreased Safety Awareness Gross Range of Motion Upper Extremity ROM Assessment Within Functional Limits Lower Extremity ROM Assessment Within Functional Limits Strength Upper Extremity Strength Assessment Within Functional Limits Lower Extremity Strength Hip 4/5 flex, ext, abd Knee 4/5 flex, ext Ankle 4/5 dorsiflex/plantarflex Comments Strength Comments Difficulty following directions Other Assessments Other Other Assessments vitals: 156/96 mmHg, 94 bpm, 100% spO2 on room air M6 PT-IP Treatment Start: 06/29/23 10:03 Freq: NEEDED Status: Active Protocol: Document 06/30/23 10:45 AB (Rec: 06/30/23 13:19 AB [id number]) Physical Therapy Treatment Education Education Provided Safety M7 PT-IP Assessment and Plan Start: 06/29/23 10:03 Freq: NEEDED Status: Active Protocol: Document 06/30/23 10:45 AB (Rec: 06/30/23 13:19 AB [id number]) PT Summary Assessment and Plan Potential Rehabilitation Potential Fair Summary Impairments Strength,Balance,Coordination, Tone,Cognition,Bed Mobility, Transfers,Gait,Activity Tolerance Progress Towards Goals Slow Progress due to Medical Issues Assessment Summary pt progressign slowly and able to ambulate without AD CGA but with lateral LOB requiring CGA for steadiness. pt is impulsive and tends to direct his own care. d/c plan depending on progress: home with assist vs SNF. will continue to assess. Goals Bed Mobility Goal Independent Transfer Goal Independent Gait Goal Independent Gait Distance 300 Days to Meet Goals 10 Frequency of Treatment Frequency Of Treatment Once a Day Treatment Plan Physical Therapy Treatment Plan Bed Mobility Training,Transfer Training,Gait Training, Therapeutic Exercise,Balance Retraining,Discharge Planning, Hot or Cold Pack,Neuromuscular Re-ed,Manual Therapy Recommendations To Nursing Amount of Assist Needed 1 Person Assist Discharge Recommendations PT Discharge Recommendations Home with Assistance,Home vs SNF Transportation Needs at Discharge Private Vehicle
--- NOTE | 2023-06-30 11:59 | OT.IPNOTE ---
Per pt's nurse, pt able to independently shower on his own and no OT needs at needed, therefore discharge OT eval orders.
--- NOTE | 2023-06-30 13:32 | CM.DPNOTE ---
Addendum entered by SY Duarte 06/30/23 14:39: ADD: Met w/patient; patient is A+Ox4, clear speech, makes good eye contact, able to track conversation. Patient is easily distracted and likes to talk about his experiences and interactions with his girlfriend and admits he has been stupid because I fell for her. Patient recounts thoughts and events leading up to his suicide attempt; reports cocaine use all day long and not sleeping for 3 days. Patient reviews his tumultuous relationship with his girlfriend that has revolved around housing instability, drug use and ended in assault charges and a no contact order. Patient endorses suicidal intent when he thought about his girlfriend leaving him and felt depressed. Patient endorses suicide attempt by taking his sleeping pills. Patient denies having suicidal thoughts in the past and denies current suicidal thoughts. Patient has no access to weapons and appears offended when asked if he would attempt suicide again, saying never, that's just a punishment for people that love me When asked about whats next, patient hopes to buy a truck, trailer and move to [place] where he thinks he can get steady work and have distance from the contacts in [place] he thinks are toxic. Patient intends to stay sober, denies need for [facility]/MH resources from this GLAZE MAKER, says he will call his seismology technical officer and discuss the court ordered [facility] treatment he needs to complete. Patient plans to discharge back to his car vs motel. Patient has income from SSD checks and says his family will assist him financially if needed. Plan: Patient no longer meets criteria for detainment; patient is A+Ox4, denies current suicidal ideation and plan, protective factors: future minded/oriented and does not want to hurt his family. Patient remains impulsive with poor judgment and insight which is likely baseline for patient. Updated RN america, provider and oncoming Jocelyn. SY Smith Original Note: GLAZE [employer]KER Note Spoke with patient's cousin Sara; she reports she has completed an affidavit outlining her concerns about patient's immediate safety and wonders how this will be used. Invited Sara to drop off a copy of her affidavit to team and if DCR evaluation is requested upon patient's medical clearance, the affidavit can be shared w/DCR during assessment for detainment. Sara shares concern about patient's vulnerability around his girlfriend and reiterates that family suspects patient is a target for exploitation. According to YULIET Ibrahim, call received from Jojo Barry P [phone] stating she is patient's DPOA and is sending medical records a copy of this ppk. Plan: This GLAZE MAKER anticipates patient will need DCR evaluation once medically stable for discharge; SW team following closely. CHARLENE
--- NOTE | 2023-06-30 15:35 | PC.NURSE ---
1500 Pt alert and oriented x 4 independent in room and to the br without assistance. PT eval completed. Pt is conversant and cooperative, denies sucidal ideation at this time. continuing to monitorQ 15min
[2023-06-30 18:22] VITALS: BP 141/89; PULSE 78; RESP 16; TEMP 36.3; O2SAT 96
[2023-06-30 20:40] VITALS: BP 152/109; PULSE 89; RESP 18; TEMP 37.3; O2SAT 97
[2023-06-30] MEDS: SODIUM CHLORIDE 0.9% FLUSH 10 ML IV (21:26)
[2023-06-30] MEDS: QUETIAPINE 100 MG TABLET 200 MG PO (21:26)
[2023-07-01 07:15] VITALS: BP 140/80; PULSE 80; RESP 16; TEMP 37.1; O2SAT 97
[2023-07-01] MEDS: AMLODIPINE 5 MG TABLET PO (08:05)
[2023-07-01] MEDS: levETIRAcetam 250 MG TABLET 1000 MG PO (08:05)
[2023-07-01] MEDS: lamoTRIgine 100 MG TABLET 400 MG PO (08:05)
[2023-07-01] MEDS: AMOXICILLIN/CLAV 500/125 MG 1 TAB PO (08:06)
[2023-07-01] MEDS: ENOXAPARIN 40 MG/0.4 ML SYRINGE SUBCUT (08:06)
[2023-07-01] MEDS: SODIUM CHLORIDE 0.9% FLUSH 10 ML IV (08:06)
--- NOTE | 2023-07-01 08:18 | CM.DPC ---
DCP Cont. Reviewed EMR and met with floor RN to discuss pt's status updates. Pt has significantly imporoved, and is back to his baseline. He was found to be sitting in his chair eating breakfast, fully independent and ready to go home. He states that his sister can likely pick him up, he'll start making calls after breakfast. notified and is in agreement that pt can d/c today. No further DCP needs indicated at this time.
--- NOTE | 2023-07-01 09:43 | P.DS_ITS ---
History of Present Illness History of Present Illness Date Patient Seen: 07/01/23 Time Patient Seen: 09:43 Chief complaint: unresponsive Narrative: CC: seizure/OD/postictal I feel okay Patient is feeling back to baseline today he is eating ice cream avidly, ambulating to bathroom as usual. Needs refill of seroquel hs 200 he is sleeping well on that dose. Discharge Providers Provider Date of admission: 06/25/23 17:29 Discharge Date: 07/01/23 Primary care physician: Xochilt Martinez DO Consults: 06/25/23 16:32 Consult to RELIGIOUS ACTIVITIES DIRECTOR - Stone Paver Stat Comment: 06/29/23 08:11 Consult to Physical Therapy Evaluate & Treat Comment: Physician Instructions: Evaluate and Treat 06/30/23 10:49 Consult to Occupational Therapy Evaluate & Treat Comment: Physician Instructions: Evaluate and treat Discharge provider: Irvin Morgan MD Summary Hospital Course Discharge Diagnosis: #Respiratory failure #Altered mental status/metabolic encephalopathy/postictal #Question suicide attempt #Seizure disorder #Bipolar/insomnia #Weakness #Hypertension Hospital Course: Complex admission following evident suicide attempt in setting of illicit drug consumption was intubated in the field by EMS and required several days to extubate and come back to baseline. Possibility there was some degree of postictal incapacitation as well. Improved back to baseline by [employer]D reports he is ready to go home seems able to ambulate and mentate clearly. Status at Discharge Cognitive/behavioral status at discharge: at baseline, oriented Functional status at discharge: independent ambulation Overall status at discharge: patient is back to baseline Time Spent with Patient Time spent: Greater than 30 minutes Exam Vital Signs (past 8 hours): - 07/01/23 07:00 07/01/23 07:15 Temperature 98.7 F Pulse Rate 80 Respiratory Rate 16 Blood Pressure 140/80 Pulse Oximetry 97 Oxygen Delivery Method Room Air Fraction of Inspired Oxygen 21 SaO2/FiO2 Ratio 452 Oxygen Delivery Method Room Air Oxygen Flow Rate 0 Narrative Exam Narrative: alert sitting in chair in street clothes scarfing ice cream Eyes Other: EOMI, PERRLA Resp Other: clear to auscultation bitaterally Cardio Other: regular rate and rhythm S1/S2 GI Other: soft nontender active bowel sounds Neuro Other: AAOx3, gait stable, speech steady Objective Labs 06/28/23 04:30 06/28/23 04:30 Labs: Laboratory Results - last 24 hr 06/25/23 15:33 U Ran Fentanyl & Norfen Negative U Fentanyl &Metab Cmmt Comment [facility] Medical History (Updated 06/25/23 @ 21:06 by Aly Montanez MD) Jaw fracture Traumatic brain injury Primary insomnia (04/15/14) Seizure disorder Bipolar I disorder Surgical History H/O knee surgery Social History marital status: unmarried,single number of children: 0 household members: family lives independently: Yes caregiver/support person: No housing: house pets and animals: Yes education level: high school 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 #Altered mental status/metabolic encephalopathy/postictal Improved back to baseline seems like #Question suicide attempt entirely possible - patient seems optimistic and non suidical today. f/up with mental health as outpatient seems like a great idea. #Seizure disorder resumed home meds doing ok #Bipolar/insomnia continue home dose 200mg quetiapine will get a refill #Weakness resolved #Hypertension continue antihypertensive therapy dispo: dx home to f/up with PCP and MH as outpt. Discharge Plan Discharge Plan Patient Disposition: Home Discharge orders & Medications Prescriptions: New quetiapine [Seroquel] 100 mg Tablet 200 mg PO BEDTIME Qty: 30 0RF Continued lamotrigine [Lamictal] 200 mg tablet 400 mg PO BID Qty: 120 3RF levetiracetam [Keppra] 1,000 mg tablet 1,000 mg PO BID mirtazapine 15 mg tablet 15 mg PO BEDTIME Qty: 30 8RF Discontinued quetiapine 50 mg tablet 150 mg PO HS Qty: 270 3RF Follow up/Referrals: Xochilt Martinez DO [Primary Care Provider] - Visit Report/Discharge Packet Instructions: Naloxone for Opiate Overdose - [facility] Stand Alone Forms: Patient Portal/API, Stroke Signs & Symptoms, Naloxone Standing Order MSDO Discharge Data Primary Care Provider: Xochilt Martinez
[2023-07-02 18:48] LABS: Fentanyl NEGATIVE; Fentanyl Confirmation NEGATIVE; Norfentanyl NEGATIVE
[2023-07-02 18:49] LABS: Norfentanyl Confirmation NEGATIVE
== END 2023-07-01 10:30 | disposition home or self-care (01) | DRG 917 ==
LOC: ED 17:15 → AC 17:30 → ICU 17:54
PROVIDERS: Family Medicine; Internal Medicine; Internal Medicine Critical Care Medicine; Admitting Provider Internal Medicine; Emergency Provider Emergency Medicine; PCP Family Medicine; Referring Provider Emergency Medicine; Visit Provider Family Medicine
DX: T50.912A Poisoning by multiple unspecified drugs, medicaments and biological substances, intentional self-harm, initial encounter (principal); G93.41 Metabolic encephalopathy; J96.01 Acute respiratory failure with hypoxia; F19.10 Other psychoactive substance abuse, uncomplicated; F31.9 Bipolar disorder, unspecified; F17.210 Nicotine dependence, cigarettes, uncomplicated; G40.909 Epilepsy, unspecified, not intractable, without status epilepticus; E87.6 Hypokalemia; G47.00 Insomnia, unspecified; I10 Essential (primary) hypertension; R53.1 Weakness; S00.33XA Contusion of nose, initial encounter; Y04.2XXA Assault by strike against or bumped into by another person, initial encounter; Z87.820 Personal history of traumatic brain injury
CPT/HCPCS: 36415; 36600; 70450; 71045; 73630; 80048; 80053; 80175; 80178; 80305; 80320; 80329; 80354; 81001; 82140; 82550; 82805; 82962; 83605; 83690; 83735; 84100; 84132; 84145; 84146; 84484; 85025; 87040; 87633; 87635; 87797; 93005; 93010; 94002; 94003; 94010; 94799; 97116; 97162; 97530; 99233; 99285; 99291; 99292; C9113; G0480; J0696; J1630; J1650; J1953; J2060; J2543; J2704

== ENCOUNTER → 2024-07-17 08:55 | Outpatient (CLI) | payer MEDICARE, SELFPAY ==
[2023-06-25 21:33] VITALS: BMI 27.3
[2023-06-26 11:08] VITALS: PULSE 72; RESP 18
[2023-06-26 12:24] VITALS: RESP 18; O2SAT 98
== END ==
PROVIDERS: PCP Family Medicine; Visit Provider Nurse Practitioner Family
DX: L02.412 Cutaneous abscess of left axilla (principal)
CPT/HCPCS: 87070; 87075; 87077; 87147; 87186; 87205